=== PATIENT | male | born 1960 | race Caucasian/White ===

== ENCOUNTER → 2018-12-24 07:01 | Outpatient (CLI) | payer MEDICARE, MEDICAID, SELFPAY ==
[2018-12-24 08:09] LABS: Add Manual Diff / Slide Review NO; Appearance Urine UA CLEAR; Basophils Absolute Auto 0 /uL (0-100); Basophils Percent Auto 0.4 % (0-2); Bilirubin Urine UA NEGATIVE (NEGATIVE); Color Urine UA YELLOW; Eosinophils Absolute Auto 200 /uL (0-450); Eosinophils Percent Auto 3.3 % (2-4); Glucose Urine UA NEGATIVE (Negative); Hematocrit 42.4 % (41-53); Hemoglobin 14.1 g/dL (13.5-17.5); Ketones Urine UA NEGATIVE (NEGATIVE); Leukocyte Esterase Urine UA NEGATIVE (NEGATIVE); Lymphocytes Absolute Auto 3600 /uL (1100-4500); Lymphocytes Percent Auto 51.4 % (25-40); Mean Corpuscular HGB Conc 33.2 % (30-36); Mean Corpuscular Hemoglobin 32.1 PG (26-34); Mean Corpuscular Volume 96.8 fL (80-100); Monocytes Absolute Auto 700 /uL (0-900); Monocytes Percent Auto 10.6 % (3-14); Neutrophils Absolute Auto 2400 /uL (1500-7000); Neutrophils Percent Auto 34.3 % (50-75); Nitrite Urine UA NEGATIVE (Negative); Occult Blood Urine UA NEGATIVE (Negative); Platelet Count 269 X10^3/uL (150-400); Protein Urine UA NEGATIVE (Negative); Red Blood Cell Count 4.38 X10^6/uL (4.5-5.9); Red Cell Distribution Width 13.3 % (11.6-14.8); Specific Gravity Urine UA 1.015 (1.000-1.035); Urobilinogen Urine UA 0.2 E.U./dL (0.2); pH Urine UA 6.5 (4.5-8.0)
[2018-12-24 08:31] LABS: Alanine Aminotransferase 17 IU/L (21-72); Albumin 4.4 g/dL (3.5-5.0); Albumin Globulin Ratio 1.3 (1.0-2.8); Alkaline Phosphatase 49 U/L (38-126); Aspartate Aminotransferase 28 IU/L (17-59); Bilirubin Total 0.6 mg/dL (0.2-1.3); Blood Urea Nitrogen 8 mg/dL (9-20); Calcium 8.6 mg/dL (8.4-10.2); Carbon Dioxide 26 mmol/L (22-32); Chloride 103 mmol/L (98-107); Cholesterol 210 mg/dL (140-199); Estimated Glomerular Filt Rate > 60.0 mL/min (>60); Globulin 3.3 g/dL (1.7-4.1); Glucose 85 mg/dL (80-110); HDL Cholesterol 59 mg/dL (40-60); HEMOLYSIS < 15 (0-50); LDL Cholesterol Calculated 136 mg/dL (<100); Potassium 4.2 mmol/L (3.4-5.1); Sodium 141 mmol/L (137-145); Total Protein 7.7 g/dL (6.3-8.2); Triglycerides 74 mg/dL (35-150)
[2018-12-24 08:45] LABS: Thyroid Stimulating Hormone 3.96 uIU/mL (0.47-4.68)
[2018-12-24 09:00] LABS: Prostate Specific Antigen Scrn 0.317 ng/mL (0.1-4.0)
== END ==
PROVIDERS: PCP Family Medicine; Visit Provider Family Medicine
DX: E78.5 Hyperlipidemia, unspecified (principal); F10.21 Alcohol dependence, in remission; Z79.01 Long term (current) use of anticoagulants; Z86.73 Personal history of transient ischemic attack (TIA), and cerebral infarction without residual deficits
CPT/HCPCS: 36415; 80053; 80061; 81003; 84153; 84443; 85025; G0103

== ENCOUNTER → 2019-07-13 10:37 | Outpatient (CLI) | payer MEDICARE, MEDICAID, SELFPAY ==
--- NOTE | 2019-07-13 | DI.RAD.S_ITS ---
PROCEDURE: XR THORACIC SPINE 3V INDICATIONS: THORACIC AND LUMBAR BACK PAIN TECHNIQUE: 3 views of the thoracic spine were acquired. COMPARISON: None. FINDINGS: Bones: No fractures or dislocations. No suspicious bony lesions. There is [id number] degenerative disease at T5-T6, T6-T7, C7-T8, T8-T9, T9-T10, T10-T11, T11-T12 and T12-L1. Degenerative disc disease is also present in the cervical spine, moderate to severe C5-C6 and mild to moderate at other levels. 12 pairs of ribs are noted, and appear intact where visualized. Soft tissues: No paravertebral stripe thickening. IMPRESSION: Mild to moderate degenerative disc disease in thoracic spine. Dictated by: Francis Clifton M.D. on 07/13/2019 at 16:20 Approved by: Francis Clifton M.D. on 07/13/2019 at 16:28
== END ==
PROVIDERS: PCP Family Medicine; Visit Provider Family Medicine
DX: M54.5 Low back pain (principal); M51.34 Other intervertebral disc degeneration, thoracic region
CPT/HCPCS: 72072

== ENCOUNTER → 2019-07-24 11:52 | Outpatient (CLI) | payer MEDICARE, MEDICAID, SELFPAY ==
--- NOTE | 2019-07-24 11:56 | DI.MRI.S_ITS ---
PROCEDURE: MR LUMBAR SPINE WO CON INDICATIONS: Lumbar Radiculopathy TECHNIQUE: Noncontrast sagittal T1 spin echo and T2 fast echo, sagittal STIR, axial T1 and T2 fast spin echo through the lumbar spine. In cases with scoliosis, additional coronal T2 fast spin echo may be performed. COMPARISON: None. FINDINGS: Image quality: Excellent. Alignment and Curvature: There is normal bony alignment. Bone Marrow: Reactive endplate change is noted adjacent to the L3-L4, L4-L5 and L5-S1 discs. No acute vertebral body compression fractures. Spinal Cord: Conus medullaris terminates at the L1 level. Visualized cord demonstrates normal signal and size. Paraspinous Soft Tissues: No paravertebral masses. L1-L2: Normal appearance. L2-L3: Loss of disc signal. Mild, diffuse disc bulge. Mild bilateral facet hypertrophy. Mild narrowing of the central canal. Mild bilateral neural foraminal narrowing. No neural compression. L3-L4: Loss of disc signal and height. Mild bilateral facet hypertrophy. No central stenosis. Mild bilateral neural foraminal narrowing. No neural compression. L4-L5: Loss of disc signal and height. Mild, diffuse disc bulge. Mild bilateral facet hypertrophy. Mild narrowing of the central canal. Moderate bilateral neural foraminal narrowing. No neural compression. L5-S1: Loss of disc signal and height. Mild, diffuse disc bulge. Mild bilateral facet hypertrophy. No central stenosis. Severe bilateral neural foraminal narrowing with compression of the exiting L5 nerve roots. IMPRESSION: 1. Multilevel degenerative disc disease. 2. Multilevel facet arthropathy. 3. Mild L2-L3 and L4-L5 central canal narrowing. 4. Severe bilateral L5-S1 neural foraminal narrowing. Moderate bilateral L4-L5 neural foraminal narrowing. Mild bilateral L2-L3 and L3-L4 neural foraminal narrowing. 5. Compression of the exiting bilateral L5 nerve roots secondary to neural foraminal narrowing. Dictated by: Lynda Walsh MD, PhD on 07/26/2019 at 11:55 Approved by: Lynda Walsh MD, PhD on 07/26/2019 at 11:59
== END ==
PROVIDERS: PCP Family Medicine; Visit Provider Family Medicine
DX: M51.16 Intervertebral disc disorders with radiculopathy, lumbar region (principal); M51.17 Intervertebral disc disorders with radiculopathy, lumbosacral region; M47.26 Other spondylosis with radiculopathy, lumbar region; M47.27 Other spondylosis with radiculopathy, lumbosacral region; M48.061 Spinal stenosis, lumbar region without neurogenic claudication; M48.07 Spinal stenosis, lumbosacral region
CPT/HCPCS: 72148

== ENCOUNTER → 2019-08-09 11:22 | Outpatient (CLI) | payer MEDICARE, MEDICAID, SELFPAY ==
[2019-08-09 12:06] LABS: Add Manual Diff / Slide Review NO; Basophils Absolute Auto 100 /uL (0-100); Basophils Percent Auto 1.5 % (0-2); Eosinophils Absolute Auto 100 /uL (0-450); Eosinophils Percent Auto 2.4 % (2-4); Hematocrit 39.6 % (41-53); Hemoglobin 13.6 g/dL (13.5-17.5); Lymphocytes Absolute Auto 2000 /uL (1100-4500); Lymphocytes Percent Auto 34.9 % (25-40); Mean Corpuscular HGB Conc 34.5 % (30-36); Mean Corpuscular Hemoglobin 32.3 PG (26-34); Mean Corpuscular Volume 93.8 fL (80-100); Monocytes Absolute Auto 600 /uL (0-900); Monocytes Percent Auto 10.1 % (3-14); Neutrophils Absolute Auto 3000 /uL (1500-7000); Neutrophils Percent Auto 51.1 % (50-75); Platelet Count 247 X10^3/uL (150-400); Red Blood Cell Count 4.22 X10^6/uL (4.5-5.9); Red Cell Distribution Width 13.1 % (11.6-14.8); White Blood Cell Count 5.8 X10^3/uL (4.5-11.0)
[2019-08-09 12:17] LABS: Alanine Aminotransferase 16 IU/L (<50); Albumin 4.2 g/dL (3.5-5.0); Albumin Globulin Ratio 1.3 (1.0-2.8); Alkaline Phosphatase 51 U/L (38-126); Aspartate Aminotransferase 22 IU/L (17-59); Bilirubin Total 0.5 mg/dL (0.2-1.3); Blood Urea Nitrogen 7 mg/dL (9-20); Calcium 8.9 mg/dL (8.4-10.2); Carbon Dioxide 29 mmol/L (22-32); Chloride 101 mmol/L (98-107); Cholesterol 192 mg/dL (140-199); Estimated Glomerular Filt Rate > 60.0 mL/min (>60); Globulin 3.3 g/dL (1.7-4.1); Glucose 106 mg/dL (80-110); HDL Cholesterol 48 mg/dL (40-60); HEMOLYSIS < 15 (0-50); LDL Cholesterol Calculated 129 mg/dL (<100); Potassium 4.1 mmol/L (3.4-5.1); Sodium 139 mmol/L (137-145); Total Protein 7.5 g/dL (6.3-8.2); Triglycerides 74 mg/dL (35-150)
[2019-08-09 12:43] LABS: Prostate Specific Antigen 0.118 ng/mL (0.10-4.00)
== END ==
PROVIDERS: PCP Family Medicine; Referring Provider Family Medicine; Visit Provider Family Medicine
DX: E78.5 Hyperlipidemia, unspecified (principal); I26.99 Other pulmonary embolism without acute cor pulmonale; Z79.01 Long term (current) use of anticoagulants; Z86.73 Personal history of transient ischemic attack (TIA), and cerebral infarction without residual deficits; Z12.5 Encounter for screening for malignant neoplasm of prostate
CPT/HCPCS: 36415; 80053; 80061; 84153; 85025

== ENCOUNTER 2020-02-07 11:15 | Outpatient (RCR) | payer MEDICARE, MEDICAID, SELFPAY ==
--- NOTE | 2019-12-22 19:05 | PT.OIE ---
Current Diagnoses Spinal stenosis, lumbosacral region (12/22/19) Difficulty in walking, not elsewhere classified (12/22/19) Abnormal posture (12/22/19) Weakness (12/22/19) Past Medical History (Last Updated 07/28/19 @ 13:20 by Gal Bland DO) Anxiety (Chronic 1997) Arthritis (Chronic Unknown) Broca's aphasia (Chronic ~1997) Chronic back pain (Chronic 2000) COPD (chronic obstructive pulmonary disease) (Chronic 1994) DVT (deep venous thrombosis) (Resolved ~2003) Foraminal stenosis of lumbar region (Acute) Foraminal stenosis of lumbosacral region (Acute) Generalized headaches (Chronic 1969) Gout (Chronic Unknown) History of cellulitis (Resolved 2016) Hx of hepatitis C (Resolved ~2010) Measles (Resolved 1964) Migraines (Chronic 1969) PTSD (post-traumatic stress disorder) (Chronic 1982) Pulmonary embolism (Resolved ~2003) Restless leg syndrome (Chronic Unknown) Stroke (Chronic 1997) Substance abuse (Chronic 1971) Vertigo (Chronic 1997) Past Surgical History (Last Reviewed 12/23/17 @ 14:50 by Ebony Rose DO) History of carpal tunnel repair History of splenectomy Visit Care Team Role Provider Type Gal Bland DO Attending Provider Physician Primary Care Provider Referring Provider Specialty: [facility] Address: [address] [place] [address], [facility] Email: Physical Therapy Initial Evaluation PT-OP-A Visit Information Start: 12/22/19 08:09 Freq: Status: Active Protocol: Document 12/22/19 13:02 [facility] (Rec: 12/22/19 13:52 [facility] [id number]) Out-Patient Physical Therapy Visit Information Visit Information Visit Type Initial Evaluation Visit Start Time 13:02 Visit Stop Time 13:45 Total Visit Minutes 43 Visit Number 1 Number of OLIVE PACKER Visits 0 PT-OP-B Current Condition Start: 12/22/19 08:09 Freq: Status: Active Protocol: Document 12/22/19 13:02 [facility] (Rec: 12/22/19 13:52 [facility] [id number]) Current Condition History of Current Condition Onset Date about 18 years ago Current Complaints LBP History of Current Condition Pt reports he has back pain and thinks he will need back surgery. He is going to neurosurgeon but the MD wanted him to see a PT prior to that . He did 2 years of PT right after having his stroke 20 years ago. Stroke affected his R side and he still has weakness. He cannot lay down flat because it hurts. Pt reprots he falls about 1-2x a year and cannot get himself up . He has a CG that helps at home 2x/week that helps with cooking and cleaning. Pt flopped onto bed while using drugs and had a stroke 20 years ago. He could not walk or talk for years. He still has trouble thinking. Pt has had a hinged AFO since the stroke. He may need another becuase it is starting to click and have problems. Pt reports from his knee down he has significant weakness from stroke and still has numbness in leg and R side of torso. Pt reports he cannot use RUE a lot d/t dec coordination. Pt is R handed. CVA in 1997 and back pain started development about 4 years after stroke and started as a little twinge. Pt reports legs are really weak d/t pain. He is limited in ability to walk and feels like 60-80 ft but gets weak after that. Even over the course of 2 min to brush teeth , he has to bend over. Pt sleeps in recliner d/t back pain. Pt reports back pain has gotten way worse over the past 3 months. Pt reports he has to use electric carts at store. He lives alone and is indep with dressing and bathing but cg sets up meals and does cleaning. Prior Treatments and Tests oxycodone for pain, tramadol in past Treatment Goals Patient/Caregiver Goals Improve ability to walk PT-OP-C Subjective Start: 12/22/19 08:09 Freq: Status: Active Protocol: Document 12/22/19 13:02 [facility] (Rec: 12/22/19 13:52 [facility] [id number]) Patient Questionnaires Oswestry Low Back Index Oswestry Score 33/50 Oswestry Impairment 60 to 79% Impaired (Score 60- 79) OP-PT Pain Assessment Location LB Pain Location Details LB Intensity 7 Scale Used Numeric (0 - 10) Description Aching,Stabbing,With Movement Description- Other pain at rest is 4-5/10 Frequency Constant Pain Duration at least 30 min after sitting to rest Radiating Location into post thigh mostly Pain Aggravating Factors Activity,Standing,Walking, Bending,Lifting Other Pain Aggravating Factors laying down, twisting Pain Alleviating Factors Medication,Sitting PT-OP-G Mobility & Gait Start: 12/22/19 08:09 Freq: Status: Active Protocol: Document 12/22/19 13:02 [facility] (Rec: 12/22/19 13:52 [facility] [id number]) OP Gait Assessment Comments Gait Comments Pt amb with excessive lat lean and dec clearance of RLE with dec stance time on RLE. Dec overall push off. Amb with AFO PT-OP-J Posture/Palpation/Skin Start: 12/22/19 08:09 Freq: Status: Active Protocol: Document 12/22/19 13:02 [facility] (Rec: 12/22/19 13:52 [facility] [id number]) Posture Evaluation Domingo Postural Classification System Lumbar Protective Mechanism Left AP 0 Lumbar Protective Mechanism Right AP 0 Lumbar Protective Mechanism Left PA 0 Lumbar Protective Mechanism Right PA 0 Comments Posture Comments fwd bent at hips, fwd head & shoulder & inc kyphosis PT-OP-K Range of Motion Start: 12/22/19 08:09 Freq: Status: Active Protocol: Document 12/22/19 13:02 [facility] (Rec: 12/22/19 13:52 [facility] [id number]) Lumbar Spine Range of Motion Lumbar Spine Active Degrees Flexion 28 Extension 6 Rotation Left 29 Rotation Right 31 Lateral Flexion Left 9 Lateral Flexion Right 16 PT-OP-L Special Tests Start: 12/22/19 08:09 Freq: Status: Active Protocol: Document 12/22/19 13:02 [facility] (Rec: 12/22/19 13:52 [facility] [id number]) Special Tests Lumbar Spine Special Tests Straight Leg Raise Test Results positive R Slump Test Results positive R PT-OP-M Strength Start: 12/22/19 08:09 Freq: Status: Active Protocol: Document 12/22/19 13:02 [facility] (Rec: 12/22/19 13:52 [facility] [id number]) Hip Strength Hip Manual Muscle Testing Right Flexion (L2) 2+ Poor+ Abduction 2+ Poor+ External Rotation 3 Fair Internal Rotation 1 Trace Left Flexion (L2) 3+ Fair+ Abduction 3+ Fair+ External Rotation 3+ Fair+ Internal Rotation 3+ Fair+ Knee Strength Knee Manual Muscle Testing Right Flexion (S2) 1 Trace Extension (L3) 3+ Fair+ Left Flexion (S2) 4+ Good+ Extension (L3) 4 Good Ankle/Foot Strength Ankle and Foot Manual Muscle Testing Right Dorsiflexion (L4) 1 Trace Left Dorsiflexion (L4) 4+ Good+ PT-OP-Q Treatments Start: 12/22/19 08:09 Freq: Status: Active Protocol: Document 12/22/19 13:02 [facility] (Rec: 12/22/19 13:52 [facility] [id number]) Therapeutic Exercises Supine Exercises hip abd Side right Reps/Minutes 2 Comments stopped d/t pain pelvic tilts Reps/Minutes 10 Sidelying Exercises clamshell Side right Reps/Minutes 10 hip abd Side left Reps/Minutes 10 PT-OP-T Assessment and Plan Start: 12/22/19 08:09 Freq: Status: Active Protocol: Document 12/22/19 13:02 [facility] (Rec: 12/22/19 13:52 [facility] [id number]) Physical Therapy Assessment Rehab Potential Rehabilitation Potential Good Evaluation Complexity Number of Personal Factors/Comorbidities 3 or More Number of Body Systems Impaired 4 or More Clinical Presentation at Evaluation Evolving Impairments Impairments Activity Tolerance,Balance, Functional Activities, Functional Mobility,Gait,Pain, Posture,ROM,Soft Tissue Mobility,Strength Goals strength Short Term Goal (STG) Pt will be indep with HEP. STG Duration 01/21/20 Prison Goal (LTG) Pt will score 2/5 on LPM to show improved core stability and inc LE strength by 1 grade for all movements in order to improve his ability to do ADLs. LTG Duration 02/21/20 pain Prison Goal (LTG) Pt will report worst pain to be 5/10 in order to allow inc ability to participate in activties. LTG Duration 02/21/20 mobility Short Term Goal (STG) Pt will be able to participate in 2 min walk test. STG Duration 01/21/20 Prison Goal (LTG) Pt will be able to walk 500ft without a rest break with only minor increase in pain in order to navigate the community more. LTG Duration 02/21/20 Assessment Summary Assessment Pt presents with chronic back pain that is likely d/t movement dysfunctions with gait and activity d/t limited mobility of RUE & LE after stroke about 20 years ago. He is limited in his ability to participate in ADLs and ambulate any functional distances due to his pain. His prior CVA has limited him R sided mobility which significantly affects his gait . He would bneefit from skilled PT in order to dec pain and improve his overall mobility and ability to participate in typical daily activities. Physical Therapy Plan Frequency and Duration Frequency of Treatment 1-2x/week Duration of Treatment 2 months Plan of Care Start Date 12/22/19 Plan of Care End Date 02/21/20 Therapeutic Interventions Therapeutic Interventions Aquatic Therapy,Balance Training,Gait Training,Home Exercise Program,Manual Therapy,Neuromuscular Re- education,Patient/Caregiver Education,Self-Care/Home Management,Soft Tissue Mobilization,Taping, Therapeutic Activities, Therapeutic Exercises Modalities Cold Pack/Ice Massage,Electric Stimulation,Hot Packs, Ultrasound Next Visit Focus/Plan Next Note Type Treatment Note Next Visit Plan review HEP
--- NOTE | 2019-12-22 19:05 | PT.OPPOC ---
Physical, Occupational & Speech Therapy At [facility] Current Diagnoses Spinal stenosis, lumbosacral region (12/22/19) Difficulty in walking, not elsewhere classified (12/22/19) Abnormal posture (12/22/19) Weakness (12/22/19) Visit Care Team Role Provider Type Gal Bland DO Attending Provider Physician Primary Care Provider Referring Provider Specialty: [facility] Address: [address] [place] [address], [facility] Email: Plan Of Care PT-OP-T Assessment and Plan Start: 12/22/19 08:09 Freq: Status: Active Protocol: Document 12/22/19 13:02 [facility] (Rec: 12/22/19 13:52 [facility] [id number]) Physical Therapy Assessment Rehab Potential Rehabilitation Potential Good Evaluation Complexity Number of Personal Factors/Comorbidities 3 or More Number of Body Systems Impaired 4 or More Clinical Presentation at Evaluation Evolving Impairments Impairments Activity Tolerance,Balance, Functional Activities, Functional Mobility,Gait,Pain, Posture,ROM,Soft Tissue Mobility,Strength Goals strength Short Term Goal (STG) Pt will be indep with HEP. STG Duration 01/21/20 Weight Guesser Goal (LTG) Pt will score 2/5 on LPM to show improved core stability and inc LE strength by 1 grade for all movements in order to improve his ability to do ADLs. LTG Duration 02/21/20 pain Weight Guesser Goal (LTG) Pt will report worst pain to be 5/10 in order to allow inc ability to participate in activties. LTG Duration 02/21/20 mobility Short Term Goal (STG) Pt will be able to participate in 2 min walk test. STG Duration 01/21/20 Group Home Goal (LTG) Pt will be able to walk 500ft without a rest break with only minor increase in pain in order to navigate the community more. LTG Duration 02/21/20 Assessment Summary Assessment Pt presents with chronic back pain that is likely d/t movement dysfunctions with gait and activity d/t limited mobility of RUE & LE after stroke about 20 years ago. He is limited in his ability to participate in ADLs and ambulate any functional distances due to his pain. His prior CVA has limited him R sided mobility which significantly affects his gait . He would bneefit from skilled PT in order to dec pain and improve his overall mobility and ability to participate in typical daily activities. Physical Therapy Plan Frequency and Duration Frequency of Treatment 1-2x/week Duration of Treatment 2 months Plan of Care Start Date 12/22/19 Plan of Care End Date 02/21/20 Therapeutic Interventions Therapeutic Interventions Aquatic Therapy,Balance Training,Gait Training,Home Exercise Program,Manual Therapy,Neuromuscular Re- education,Patient/Caregiver Education,Self-Care/Home Management,Soft Tissue Mobilization,Taping, Therapeutic Activities, Therapeutic Exercises Modalities Cold Pack/Ice Massage,Electric Stimulation,Hot Packs, Ultrasound Next Visit Focus/Plan Next Note Type Treatment Note Next Visit Plan review HEP Plan of Care Dates Plan of Care Start Date 12/22/19 Plan of Care End Date 02/21/20 Electronically Signed by: hSanae Hickey, PT 12/22/19 4536 Please Sign and Return: I have reviewed this Plan of Care and certify that the skilled therapy services above are required to meet the patient?s needs. Physician Signature Date Printed Name and Credentials Clinical Instructor Signature Printed Name and Credentials
--- NOTE | 2020-01-10 12:23 | PT.OTN ---
Current Diagnoses Spinal stenosis, lumbosacral region (01/10/20) Difficulty in walking, not elsewhere classified (01/10/20) Abnormal posture (01/10/20) Weakness (01/10/20) Physical Therapy Treatment Note PT-OP-A Visit Information Start: 12/22/19 08:09 Freq: Status: Active Protocol: Document 01/10/20 11:21 [facility] (Rec: 01/10/20 12:22 [facility] [id number]) Out-Patient Physical Therapy Visit Information Visit Information Visit Type Treatment Note Visit Start Time 11:21 Visit Stop Time 12:00 Total Visit Minutes 39 Visit Number 2 Number of RAGS LABORER Visits 0 PT-OP-B Current Condition Start: 12/22/19 08:09 Freq: Status: Active Protocol: Document 12/22/19 13:02 [facility] (Rec: 12/22/19 13:52 [facility] [id number]) Current Condition History of Current Condition Onset Date about 18 years ago Current Complaints LBP History of Current Condition Pt reports he has back pain and thinks he will need back surgery. He is going to neurosurgeon but the MD wanted him to see a PT prior to that . He did 2 years of PT right after having his stroke 20 years ago. Stroke affected his R side and he still has weakness. He cannot lay down flat because it hurts. Pt reprots he falls about 1-2x a year and cannot get himself up . He has a CG that helps at home 2x/week that helps with cooking and cleaning. Pt flopped onto bed while using drugs and had a stroke 20 years ago. He could not walk or talk for years. He still has trouble thinking. Pt has had a hinged AFO since the stroke. He may need another becuase it is starting to click and have problems. Pt reports from his knee down he has significant weakness from stroke and still has numbness in leg and R side of torso. Pt reports he cannot use RUE a lot d/t dec coordination. Pt is R handed. CVA in 1997 and back pain started development about 4 years after stroke and started as a little twinge. Pt reports legs are really weak d/t pain. He is limited in ability to walk and feels like 60-80 ft but gets weak after that. Even over the course of 2 min to brush teeth , he has to bend over. Pt sleeps in recliner d/t back pain. Pt reports back pain has gotten way worse over the past 3 months. Pt reports he has to use electric carts at store. He lives alone and is indep with dressing and bathing but cg sets up meals and does cleaning. Prior Treatments and Tests oxycodone for pain, tramadol in past Treatment Goals Patient/Caregiver Goals Improve ability to walk PT-OP-C Subjective Start: 12/22/19 08:09 Freq: Status: Active Protocol: Document 01/10/20 11:21 [facility] (Rec: 01/10/20 12:22 [facility] [id number]) OP-PT Subjective Patient Comments Patient Comments Pt reprots compliance with exercises right after the appt but hasn't done them in past ocuple days. PT-OP-G Mobility & Gait Start: 12/22/19 08:09 Freq: Status: Active Protocol: Document 12/22/19 13:02 [facility] (Rec: 12/22/19 13:52 [facility] [id number]) OP Gait Assessment Comments Gait Comments Pt amb with excessive lat lean and dec clearance of RLE with dec stance time on RLE. Dec overall push off. Amb with AFO PT-OP-J Posture/Palpation/Skin Start: 12/22/19 08:09 Freq: Status: Active Protocol: Document 12/22/19 13:02 [facility] (Rec: 12/22/19 13:52 [facility] [id number]) Posture Evaluation Domingo Postural Classification System Lumbar Protective Mechanism Left AP 0 Lumbar Protective Mechanism Right AP 0 Lumbar Protective Mechanism Left PA 0 Lumbar Protective Mechanism Right PA 0 Comments Posture Comments fwd bent at hips, fwd head & shoulder & inc kyphosis PT-OP-K Range of Motion Start: 12/22/19 08:09 Freq: Status: Active Protocol: Document 12/22/19 13:02 [facility] (Rec: 12/22/19 13:52 [facility] [id number]) Lumbar Spine Range of Motion Lumbar Spine Active Degrees Flexion 28 Extension 6 Rotation Left 29 Rotation Right 31 Lateral Flexion Left 9 Lateral Flexion Right 16 PT-OP-L Special Tests Start: 12/22/19 08:09 Freq: Status: Active Protocol: Document 12/22/19 13:02 [facility] (Rec: 12/22/19 13:52 [facility] [id number]) Special Tests Lumbar Spine Special Tests Straight Leg Raise Test Results positive R Slump Test Results positive R PT-OP-M Strength Start: 12/22/19 08:09 Freq: Status: Active Protocol: Document 12/22/19 13:02 [facility] (Rec: 12/22/19 13:52 [facility] [id number]) Hip Strength Hip Manual Muscle Testing Right Flexion (L2) 2+ Poor+ Abduction 2+ Poor+ External Rotation 3 Fair Internal Rotation 1 Trace Left Flexion (L2) 3+ Fair+ Abduction 3+ Fair+ External Rotation 3+ Fair+ Internal Rotation 3+ Fair+ Knee Strength Knee Manual Muscle Testing Right Flexion (S2) 1 Trace Extension (L3) 3+ Fair+ Left Flexion (S2) 4+ Good+ Extension (L3) 4 Good Ankle/Foot Strength Ankle and Foot Manual Muscle Testing Right Dorsiflexion (L4) 1 Trace Left Dorsiflexion (L4) 4+ Good+ PT-OP-Q Treatments Start: 12/22/19 08:09 Freq: Status: Active Protocol: Document 01/10/20 11:21 [facility] (Rec: 01/10/20 12:22 [facility] [id number]) Therapeutic Exercises Supine Exercises ER Supine Exercise Name BKFO w/TA Side bilateral Reps/Minutes 10 hip flex Supine Exercise Name SLR w/TA Side bilateral Reps/Minutes 10 pelvic tilts Reps/Minutes 20 Comments manual cueing Sidelying Exercises clamshell Side bilateral Reps/Minutes 10 hip abd Side left Reps/Minutes 10 Sitting Exercises march Side bilateral Reps/Minutes 15 Comments focus on core Standing Exercises sit <>Stnad Reps/Minutes 10 Comments min UE use Manual Therapy Treatment Soft Tissue Mobilization ES & QL Body Location R>L Mobilization Type Rolling Intensity/Depth Moderate Body Position Prone Comments pt noted discomfort w/prone so try seated or S/L next time Self-Care/Home Management Treatment Education Patient Education Home Exercise Program,Pain Management Other Education use of ice/heat for pain, edu to stay in painfree range, edu to go slow with exercises, stop activities if painful PT-OP-T Assessment and Plan Start: 12/22/19 08:09 Freq: Status: Active Protocol: Document 01/10/20 11:21 [facility] (Rec: 01/10/20 12:22 [facility] [id number]) Physical Therapy Assessment Goals strength Short Term Goal (STG) Pt will be indep with HEP. STG Duration 01/21/20 Flat Folding Machine Operator Goal (LTG) Pt will score 2/5 on LPM to show improved core stability and inc LE strength by 1 grade for all movements in order to improve his ability to do ADLs. LTG Duration 02/21/20 pain Skilled Nursing Goal (LTG) Pt will report worst pain to be 5/10 in order to allow inc ability to participate in activties. LTG Duration 02/21/20 mobility Short Term Goal (STG) Pt will be able to participate in 2 min walk test. STG Duration 01/21/20 Skilled Nursing Goal (LTG) Pt will be able to walk 500ft without a rest break with only minor increase in pain in order to navigate the community more. LTG Duration 02/21/20 Assessment Summary Assessment Pt noted after exercises but not during re: pain and noted after finishing prone manual that prone was painful. Significant time spent today educating pt on staying in painfree range with activities and letting therapist know that positions of activities hurt. Prone was chosen for STM d/t pt chosing position. Pt educated that position can be changed as need Physical Therapy Plan Frequency and Duration Frequency of Treatment 1-2x/week Duration of Treatment 2 months Plan of Care Start Date 12/22/19 Plan of Care End Date 02/21/20 Next Visit Focus/Plan Next Note Type Treatment Note Next Visit Plan review HEP, STM in s/l or seated
--- NOTE | 2020-01-12 12:03 | PT.OTN ---
Current Diagnoses Spinal stenosis, lumbosacral region (01/12/20) Difficulty in walking, not elsewhere classified (01/12/20) Abnormal posture (01/12/20) Weakness (01/12/20) Physical Therapy Treatment Note PT-OP-A Visit Information Start: 12/22/19 08:09 Freq: Status: Active Protocol: Document 01/12/20 11:22 [facility] (Rec: 01/12/20 12:03 [facility] [id number]) Out-Patient Physical Therapy Visit Information Visit Information Visit Type Treatment Note Visit Start Time 11:19 Visit Stop Time 11:57 Total Visit Minutes 38 Visit Number 3 Number of MANAGER OF PATIENT Visits 0 PT-OP-B Current Condition Start: 12/22/19 08:09 Freq: Status: Active Protocol: Document 12/22/19 13:02 [facility] (Rec: 12/22/19 13:52 [facility] [id number]) Current Condition History of Current Condition Onset Date about 18 years ago Current Complaints LBP History of Current Condition Pt reports he has back pain and thinks he will need back surgery. He is going to neurosurgeon but the MD wanted him to see a PT prior to that . He did 2 years of PT right after having his stroke 20 years ago. Stroke affected his R side and he still has weakness. He cannot lay down flat because it hurts. Pt reprots he falls about 1-2x a year and cannot get himself up . He has a CG that helps at home 2x/week that helps with cooking and cleaning. Pt flopped onto bed while using drugs and had a stroke 20 years ago. He could not walk or talk for years. He still has trouble thinking. Pt has had a hinged AFO since the stroke. He may need another becuase it is starting to click and have problems. Pt reports from his knee down he has significant weakness from stroke and still has numbness in leg and R side of torso. Pt reports he cannot use RUE a lot d/t dec coordination. Pt is R handed. CVA in 1997 and back pain started development about 4 years after stroke and started as a little twinge. Pt reports legs are really weak d/t pain. He is limited in ability to walk and feels like 60-80 ft but gets weak after that. Even over the course of 2 min to brush teeth , he has to bend over. Pt sleeps in recliner d/t back pain. Pt reports back pain has gotten way worse over the past 3 months. Pt reports he has to use electric carts at store. He lives alone and is indep with dressing and bathing but cg sets up meals and does cleaning. Prior Treatments and Tests oxycodone for pain, tramadol in past Treatment Goals Patient/Caregiver Goals Improve ability to walk PT-OP-C Subjective Start: 12/22/19 08:09 Freq: Status: Active Protocol: Document 01/12/20 11:22 [facility] (Rec: 01/12/20 12:03 [facility] [id number]) OP-PT Subjective Patient Comments Patient Comments Pt reports his pain was not as bad as he thought it may be after last session. Pt reports yesterday his arms and legs started hurting and he had to grab the bar in the lobby to get back to his apartment d/t legs giving out. Pt reports up until 3 weeks ago he could use a shopping cart, now has to use an electic cart PT-OP-G Mobility & Gait Start: 12/22/19 08:09 Freq: Status: Active Protocol: Document 12/22/19 13:02 [facility] (Rec: 12/22/19 13:52 [facility] [id number]) OP Gait Assessment Comments Gait Comments Pt amb with excessive lat lean and dec clearance of RLE with dec stance time on RLE. Dec overall push off. Amb with AFO PT-OP-J Posture/Palpation/Skin Start: 12/22/19 08:09 Freq: Status: Active Protocol: Document 12/22/19 13:02 [facility] (Rec: 12/22/19 13:52 [facility] [id number]) Posture Evaluation [facility] Postural Classification System Lumbar Protective Mechanism Left AP 0 Lumbar Protective Mechanism Right AP 0 Lumbar Protective Mechanism Left PA 0 Lumbar Protective Mechanism Right PA 0 Comments Posture Comments fwd bent at hips, fwd head & shoulder & inc kyphosis PT-OP-K Range of Motion Start: 12/22/19 08:09 Freq: Status: Active Protocol: Document 12/22/19 13:02 [facility] (Rec: 12/22/19 13:52 [facility] [id number]) Lumbar Spine Range of Motion Lumbar Spine Active Degrees Flexion 28 Extension 6 Rotation Left 29 Rotation Right 31 Lateral Flexion Left 9 Lateral Flexion Right 16 PT-OP-L Special Tests Start: 12/22/19 08:09 Freq: Status: Active Protocol: Document 12/22/19 13:02 [facility] (Rec: 12/22/19 13:52 [facility] [id number]) Special Tests Lumbar Spine Special Tests Straight Leg Raise Test Results positive R Slump Test Results positive R PT-OP-M Strength Start: 12/22/19 08:09 Freq: Status: Active Protocol: Document 12/22/19 13:02 [facility] (Rec: 12/22/19 13:52 [facility] [id number]) Hip Strength Hip Manual Muscle Testing Right Flexion (L2) 2+ Poor+ Abduction 2+ Poor+ External Rotation 3 Fair Internal Rotation 1 Trace Left Flexion (L2) 3+ Fair+ Abduction 3+ Fair+ External Rotation 3+ Fair+ Internal Rotation 3+ Fair+ Knee Strength Knee Manual Muscle Testing Right Flexion (S2) 1 Trace Extension (L3) 3+ Fair+ Left Flexion (S2) 4+ Good+ Extension (L3) 4 Good Ankle/Foot Strength Ankle and Foot Manual Muscle Testing Right Dorsiflexion (L4) 1 Trace Left Dorsiflexion (L4) 4+ Good+ PT-OP-Q Treatments Start: 12/22/19 08:09 Freq: Status: Active Protocol: Document 01/12/20 11:22 [facility] (Rec: 01/12/20 12:03 [facility] [id number]) Cardio Equipment Recumbent Stepper (Sci-Fit) Duration (Minutes) 7 Resistance 2 Seat Position 12 Therapeutic Exercises Sitting Exercises ER Side bilateral Equipment Used L2 Reps/Minutes 15x2 march Side bilateral Reps/Minutes 2x10 Comments focus on core Standing Exercises hip abd Standing Exercise Name focus on core Side bilateral Reps/Minutes 10 sit <>Stnad Reps/Minutes 10 Comments min UE use as needed Manual Therapy Treatment Soft Tissue Mobilization ES & QL Body Location R>L Mobilization Type Rolling Intensity/Depth Moderate Body Position Sitting Comments bent over onto table PT-OP-T Assessment and Plan Start: 12/22/19 08:09 Freq: Status: Active Protocol: Document 01/12/20 11:22 [facility] (Rec: 01/12/20 12:03 [facility] [id number]) Physical Therapy Assessment Goals strength Short Term Goal (STG) Pt will be indep with HEP. STG Duration 01/21/20 Trans Router Goal (LTG) Pt will score 2/5 on LPM to show improved core stability and inc LE strength by 1 grade for all movements in order to improve his ability to do ADLs. LTG Duration 02/21/20 pain Group Home Goal (LTG) Pt will report worst pain to be 5/10 in order to allow inc ability to participate in activties. LTG Duration 02/21/20 mobility Short Term Goal (STG) Pt will be able to participate in 2 min walk test. STG Duration 01/21/20 Group Home Goal (LTG) Pt will be able to walk 500ft without a rest break with only minor increase in pain in order to navigate the community more. LTG Duration 02/21/20 Assessment Summary Assessment Pt felt relief after session today. He did not report inc pain with exercises done today and reports he has places he can participate in those at home. Adjusted HEP. Physical Therapy Plan Frequency and Duration Frequency of Treatment 1-2x/week Duration of Treatment 2 months Plan of Care Start Date 12/22/19 Plan of Care End Date 02/21/20 Next Visit Focus/Plan Next Note Type Treatment Note Next Visit Plan REview adjusted HEP, STM as tolerated
--- NOTE | 2020-01-17 11:59 | PT.OTN ---
Current Diagnoses Spinal stenosis, lumbosacral region (01/17/20) Difficulty in walking, not elsewhere classified (01/17/20) Abnormal posture (01/17/20) Weakness (01/17/20) Physical Therapy Treatment Note PT-OP-A Visit Information Start: 12/22/19 08:09 Freq: Status: Active Protocol: Document 01/17/20 11:19 [facility] (Rec: 01/17/20 11:38 [facility] [id number]) Out-Patient Physical Therapy Visit Information Visit Information Visit Type Treatment Note Visit Start Time 11:18 Visit Stop Time 11:58 Total Visit Minutes 40 Visit Number 3 Number of FINANCIAL FOUNDATIONS ASSOCIATE Visits 0 PT-OP-B Current Condition Start: 12/22/19 08:09 Freq: Status: Active Protocol: Document 12/22/19 13:02 [facility] (Rec: 12/22/19 13:52 [facility] [id number]) Current Condition History of Current Condition Onset Date about 18 years ago Current Complaints LBP History of Current Condition Pt reports he has back pain and thinks he will need back surgery. He is going to neurosurgeon but the MD wanted him to see a PT prior to that . He did 2 years of PT right after having his stroke 20 years ago. Stroke affected his R side and he still has weakness. He cannot lay down flat because it hurts. Pt reprots he falls about 1-2x a year and cannot get himself up . He has a CG that helps at home 2x/week that helps with cooking and cleaning. Pt flopped onto bed while using drugs and had a stroke 20 years ago. He could not walk or talk for years. He still has trouble thinking. Pt has had a hinged AFO since the stroke. He may need another becuase it is starting to click and have problems. Pt reports from his knee down he has significant weakness from stroke and still has numbness in leg and R side of torso. Pt reports he cannot use RUE a lot d/t dec coordination. Pt is R handed. CVA in 1997 and back pain started development about 4 years after stroke and started as a little twinge. Pt reports legs are really weak d/t pain. He is limited in ability to walk and feels like 60-80 ft but gets weak after that. Even over the course of 2 min to brush teeth , he has to bend over. Pt sleeps in recliner d/t back pain. Pt reports back pain has gotten way worse over the past 3 months. Pt reports he has to use electric carts at store. He lives alone and is indep with dressing and bathing but cg sets up meals and does cleaning. Prior Treatments and Tests oxycodone for pain, tramadol in past Treatment Goals Patient/Caregiver Goals Improve ability to walk PT-OP-C Subjective Start: 12/22/19 08:09 Freq: Status: Active Protocol: Document 01/17/20 11:19 [facility] (Rec: 01/17/20 11:38 [facility] [id number]) OP-PT Subjective Patient Comments Patient Comments Pt reports he felt pretty good after last session PT-OP-G Mobility & Gait Start: 12/22/19 08:09 Freq: Status: Active Protocol: Document 12/22/19 13:02 [facility] (Rec: 12/22/19 13:52 [facility] [id number]) OP Gait Assessment Comments Gait Comments Pt amb with excessive lat lean and dec clearance of RLE with dec stance time on RLE. Dec overall push off. Amb with AFO PT-OP-J Posture/Palpation/Skin Start: 12/22/19 08:09 Freq: Status: Active Protocol: Document 12/22/19 13:02 [facility] (Rec: 12/22/19 13:52 [facility] [id number]) Posture Evaluation [facility] Postural Classification System Lumbar Protective Mechanism Left AP 0 Lumbar Protective Mechanism Right AP 0 Lumbar Protective Mechanism Left PA 0 Lumbar Protective Mechanism Right PA 0 Comments Posture Comments fwd bent at hips, fwd head & shoulder & inc kyphosis PT-OP-K Range of Motion Start: 12/22/19 08:09 Freq: Status: Active Protocol: Document 12/22/19 13:02 [facility] (Rec: 12/22/19 13:52 [facility] [id number]) Lumbar Spine Range of Motion Lumbar Spine Active Degrees Flexion 28 Extension 6 Rotation Left 29 Rotation Right 31 Lateral Flexion Left 9 Lateral Flexion Right 16 PT-OP-L Special Tests Start: 12/22/19 08:09 Freq: Status: Active Protocol: Document 12/22/19 13:02 [facility] (Rec: 12/22/19 13:52 [facility] [id number]) Special Tests Lumbar Spine Special Tests Straight Leg Raise Test Results positive R Slump Test Results positive R PT-OP-M Strength Start: 12/22/19 08:09 Freq: Status: Active Protocol: Document 12/22/19 13:02 [facility] (Rec: 12/22/19 13:52 [facility] [id number]) Hip Strength Hip Manual Muscle Testing Right Flexion (L2) 2+ Poor+ Abduction 2+ Poor+ External Rotation 3 Fair Internal Rotation 1 Trace Left Flexion (L2) 3+ Fair+ Abduction 3+ Fair+ External Rotation 3+ Fair+ Internal Rotation 3+ Fair+ Knee Strength Knee Manual Muscle Testing Right Flexion (S2) 1 Trace Extension (L3) 3+ Fair+ Left Flexion (S2) 4+ Good+ Extension (L3) 4 Good Ankle/Foot Strength Ankle and Foot Manual Muscle Testing Right Dorsiflexion (L4) 1 Trace Left Dorsiflexion (L4) 4+ Good+ PT-OP-Q Treatments Start: 12/22/19 08:09 Freq: Status: Active Protocol: Document 01/17/20 11:19 [facility] (Rec: 01/17/20 11:38 [facility] [id number]) Cardio Equipment Recumbent Stepper (Sci-Fit) Duration (Minutes) 7 Resistance 4 Seat Position 11 Therapeutic Exercises Supine Exercises pelvic tilts Reps/Minutes 20 Comments manual cueing Sitting Exercises ER Side bilateral Equipment Used L2 Reps/Minutes 15x2 march Side bilateral Reps/Minutes 2x10 Comments focus on core Standing Exercises ext Standing Exercise Name focus on core Side bilateral Reps/Minutes 10 hip abd Standing Exercise Name focus on core Side bilateral Reps/Minutes 10 sit <>Stnad Reps/Minutes 10 Comments min UE use as needed Manual Therapy Treatment Soft Tissue Mobilization ES & QL Body Location R>L Mobilization Type Rolling Intensity/Depth Moderate Body Position Sitting Comments bent over onto table PT-OP-T Assessment and Plan Start: 12/22/19 08:09 Freq: Status: Active Protocol: Document 01/17/20 11:19 [facility] (Rec: 01/17/20 11:38 [facility] [id number]) Physical Therapy Assessment Goals strength Short Term Goal (STG) Pt will be indep with HEP. STG Duration 01/21/20 Usp Goal (LTG) Pt will score 2/5 on LPM to show improved core stability and inc LE strength by 1 grade for all movements in order to improve his ability to do ADLs. LTG Duration 02/21/20 pain Printing Machine Mechanic Goal (LTG) Pt will report worst pain to be 5/10 in order to allow inc ability to participate in activties. LTG Duration 02/21/20 mobility Short Term Goal (STG) Pt will be able to participate in 2 min walk test. STG Duration 01/21/20 Printing Machine Mechanic Goal (LTG) Pt will be able to walk 500ft without a rest break with only minor increase in pain in order to navigate the community more. LTG Duration 02/21/20 Assessment Summary Assessment Improved performance with exercises today. pt still required cueing for form though especially regarding posture. Physical Therapy Plan Frequency and Duration Frequency of Treatment 1-2x/week Duration of Treatment 2 months Plan of Care Start Date 12/22/19 Plan of Care End Date 02/21/20 Next Visit Focus/Plan Next Note Type Treatment Note Next Visit Plan REview adjusted HEP, STM as tolerated
--- NOTE | 2020-01-19 11:54 | PT.OTN ---
Current Diagnoses Spinal stenosis, lumbosacral region (01/19/20) Difficulty in walking, not elsewhere classified (01/19/20) Abnormal posture (01/19/20) Weakness (01/19/20) Physical Therapy Treatment Note PT-OP-A Visit Information Start: 12/22/19 08:09 Freq: Status: Active Protocol: Document 01/19/20 11:06 [facility] (Rec: 01/19/20 11:54 [facility] [id number]) Out-Patient Physical Therapy Visit Information Visit Information Visit Type Treatment Note Visit Start Time 11:05 Visit Stop Time 11:50 Total Visit Minutes 45 Visit Number 4 Number of INTERNATIONAL RELATIONS PROFESSOR Visits 0 PT-OP-B Current Condition Start: 12/22/19 08:09 Freq: Status: Active Protocol: Document 12/22/19 13:02 [facility] (Rec: 12/22/19 13:52 [facility] [id number]) Current Condition History of Current Condition Onset Date about 18 years ago Current Complaints LBP History of Current Condition Pt reports he has back pain and thinks he will need back surgery. He is going to neurosurgeon but the MD wanted him to see a PT prior to that . He did 2 years of PT right after having his stroke 20 years ago. Stroke affected his R side and he still has weakness. He cannot lay down flat because it hurts. Pt reprots he falls about 1-2x a year and cannot get himself up . He has a CG that helps at home 2x/week that helps with cooking and cleaning. Pt flopped onto bed while using drugs and had a stroke 20 years ago. He could not walk or talk for years. He still has trouble thinking. Pt has had a hinged AFO since the stroke. He may need another becuase it is starting to click and have problems. Pt reports from his knee down he has significant weakness from stroke and still has numbness in leg and R side of torso. Pt reports he cannot use RUE a lot d/t dec coordination. Pt is R handed. CVA in 1997 and back pain started development about 4 years after stroke and started as a little twinge. Pt reports legs are really weak d/t pain. He is limited in ability to walk and feels like 60-80 ft but gets weak after that. Even over the course of 2 min to brush teeth , he has to bend over. Pt sleeps in recliner d/t back pain. Pt reports back pain has gotten way worse over the past 3 months. Pt reports he has to use electric carts at store. He lives alone and is indep with dressing and bathing but cg sets up meals and does cleaning. Prior Treatments and Tests oxycodone for pain, tramadol in past Treatment Goals Patient/Caregiver Goals Improve ability to walk PT-OP-C Subjective Start: 12/22/19 08:09 Freq: Status: Active Protocol: Document 01/19/20 11:06 [facility] (Rec: 01/19/20 11:54 [facility] [id number]) OP-PT Subjective Patient Comments Patient Comments Pt reprots doing a set of his exercises yesterday. Pt reports back felt pretty good when he first woke up. After walking around the little bit he has done so far, it is a little more sore. PT-OP-G Mobility & Gait Start: 12/22/19 08:09 Freq: Status: Active Protocol: Document 12/22/19 13:02 [facility] (Rec: 12/22/19 13:52 [facility] [id number]) OP Gait Assessment Comments Gait Comments Pt amb with excessive lat lean and dec clearance of RLE with dec stance time on RLE. Dec overall push off. Amb with AFO PT-OP-J Posture/Palpation/Skin Start: 12/22/19 08:09 Freq: Status: Active Protocol: Document 12/22/19 13:02 [facility] (Rec: 12/22/19 13:52 [facility] [id number]) Posture Evaluation [facility] Postural Classification System Lumbar Protective Mechanism Left AP 0 Lumbar Protective Mechanism Right AP 0 Lumbar Protective Mechanism Left PA 0 Lumbar Protective Mechanism Right PA 0 Comments Posture Comments fwd bent at hips, fwd head & shoulder & inc kyphosis PT-OP-K Range of Motion Start: 12/22/19 08:09 Freq: Status: Active Protocol: Document 12/22/19 13:02 [facility] (Rec: 12/22/19 13:52 [facility] [id number]) Lumbar Spine Range of Motion Lumbar Spine Active Degrees Flexion 28 Extension 6 Rotation Left 29 Rotation Right 31 Lateral Flexion Left 9 Lateral Flexion Right 16 PT-OP-L Special Tests Start: 12/22/19 08:09 Freq: Status: Active Protocol: Document 12/22/19 13:02 [facility] (Rec: 12/22/19 13:52 [facility] [id number]) Special Tests Lumbar Spine Special Tests Straight Leg Raise Test Results positive R Slump Test Results positive R PT-OP-M Strength Start: 12/22/19 08:09 Freq: Status: Active Protocol: Document 12/22/19 13:02 [facility] (Rec: 12/22/19 13:52 [facility] [id number]) Hip Strength Hip Manual Muscle Testing Right Flexion (L2) 2+ Poor+ Abduction 2+ Poor+ External Rotation 3 Fair Internal Rotation 1 Trace Left Flexion (L2) 3+ Fair+ Abduction 3+ Fair+ External Rotation 3+ Fair+ Internal Rotation 3+ Fair+ Knee Strength Knee Manual Muscle Testing Right Flexion (S2) 1 Trace Extension (L3) 3+ Fair+ Left Flexion (S2) 4+ Good+ Extension (L3) 4 Good Ankle/Foot Strength Ankle and Foot Manual Muscle Testing Right Dorsiflexion (L4) 1 Trace Left Dorsiflexion (L4) 4+ Good+ PT-OP-Q Treatments Start: 12/22/19 08:09 Freq: Status: Active Protocol: Document 01/19/20 11:06 [facility] (Rec: 01/19/20 11:54 [facility] [id number]) Cardio Equipment Recumbent Stepper (Sci-Fit) Duration (Minutes) 8 Resistance 4-5 Seat Position 12 Therapeutic Exercises Supine Exercises LTR Side bilateral Reps/Minutes 10 Comments focus on core bridge Side bilateral Reps/Minutes 15 Comments w/manual traction through LEs pelvic tilts Reps/Minutes 10 x5 sec Comments focus on breathing during hold Sitting Exercises ER Side bilateral Equipment Used L2 Reps/Minutes 15x2 march Side bilateral Reps/Minutes 2x10 Comments focus on core Standing Exercises hip hikes Side bilateral Equipment Used 4 in step w/ rail Reps/Minutes 10 ext Standing Exercise Name focus on core Side bilateral Reps/Minutes 15 hip abd Standing Exercise Name focus on core Side bilateral Reps/Minutes 15 sit <>Stnad Reps/Minutes 10 Comments min UE use as needed Manual Therapy Treatment Soft Tissue Mobilization ES & QL Body Location R>L Mobilization Type Rolling Intensity/Depth Moderate Body Position Sitting Comments bent over onto table PT-OP-T Assessment and Plan Start: 12/22/19 08:09 Freq: Status: Active Protocol: Document 01/19/20 11:06 [facility] (Rec: 01/19/20 11:54 [facility] [id number]) Physical Therapy Assessment Goals strength Short Term Goal (STG) Pt will be indep with HEP. STG Duration 01/21/20 Fdc Goal (LTG) Pt will score 2/5 on LPM to show improved core stability and inc LE strength by 1 grade for all movements in order to improve his ability to do ADLs. LTG Duration 02/21/20 pain Fdc Goal (LTG) Pt will report worst pain to be 5/10 in order to allow inc ability to participate in activties. LTG Duration 02/21/20 mobility Short Term Goal (STG) Pt will be able to participate in 2 min walk test. STG Duration 01/21/20 Fdc Goal (LTG) Pt will be able to walk 500ft without a rest break with only minor increase in pain in order to navigate the community more. LTG Duration 02/21/20 Assessment Summary Assessment Very min cueing required w/ exercises today. Pt showed improved independece. Hip hike was very difficult both sides which likely contributes ot back pain duirng his gait pattern. Physical Therapy Plan Frequency and Duration Frequency of Treatment 1-2x/week Duration of Treatment 2 months Plan of Care Start Date 12/22/19 Plan of Care End Date 02/21/20 Next Visit Focus/Plan Next Note Type Treatment Note Next Visit Plan Try balance board, seated tball exercises, and STM to help w/dec of pain.
--- NOTE | 2020-01-25 12:02 | PT.OTN ---
Current Diagnoses Spinal stenosis, lumbosacral region (01/25/20) Difficulty in walking, not elsewhere classified (01/25/20) Abnormal posture (01/25/20) Weakness (01/25/20) Physical Therapy Treatment Note PT-OP-A Visit Information Start: 12/22/19 08:09 Freq: Status: Active Protocol: Document 01/25/20 11:15 DCW (Rec: 01/25/20 12:02 DCW [id number]) Out-Patient Physical Therapy Visit Information Visit Information Visit Type Treatment Note Visit Start Time 11:15 Visit Stop Time 12:00 Total Visit Minutes 45 Visit Number 5 Number of REGISTER OF DEEDS Visits 0 PT-OP-B Current Condition Start: 12/22/19 08:09 Freq: Status: Active Protocol: Document 12/22/19 13:02 [facility] (Rec: 12/22/19 13:52 [facility] [id number]) Current Condition History of Current Condition Onset Date about 18 years ago Current Complaints LBP History of Current Condition Pt reports he has back pain and thinks he will need back surgery. He is going to neurosurgeon but the MD wanted him to see a PT prior to that . He did 2 years of PT right after having his stroke 20 years ago. Stroke affected his R side and he still has weakness. He cannot lay down flat because it hurts. Pt reprots he falls about 1-2x a year and cannot get himself up . He has a CG that helps at home 2x/week that helps with cooking and cleaning. Pt flopped onto bed while using drugs and had a stroke 20 years ago. He could not walk or talk for years. He still has trouble thinking. Pt has had a hinged AFO since the stroke. He may need another becuase it is starting to click and have problems. Pt reports from his knee down he has significant weakness from stroke and still has numbness in leg and R side of torso. Pt reports he cannot use RUE a lot d/t dec coordination. Pt is R handed. CVA in 1997 and back pain started development about 4 years after stroke and started as a little twinge. Pt reports legs are really weak d/t pain. He is limited in ability to walk and feels like 60-80 ft but gets weak after that. Even over the course of 2 min to brush teeth , he has to bend over. Pt sleeps in recliner d/t back pain. Pt reports back pain has gotten way worse over the past 3 months. Pt reports he has to use electric carts at store. He lives alone and is indep with dressing and bathing but cg sets up meals and does cleaning. Prior Treatments and Tests oxycodone for pain, tramadol in past Treatment Goals Patient/Caregiver Goals Improve ability to walk PT-OP-C Subjective Start: 12/22/19 08:09 Freq: Status: Active Protocol: Document 01/25/20 11:15 DCW (Rec: 01/25/20 12:02 DCW [id number]) OP-PT Subjective Patient Comments Patient Comments Pt reports he was very fatigued after his last session, I could barely make it out to my car. PT-OP-G Mobility & Gait Start: 12/22/19 08:09 Freq: Status: Active Protocol: Document 12/22/19 13:02 [facility] (Rec: 12/22/19 13:52 [facility] [id number]) OP Gait Assessment Comments Gait Comments Pt amb with excessive lat lean and dec clearance of RLE with dec stance time on RLE. Dec overall push off. Amb with AFO PT-OP-J Posture/Palpation/Skin Start: 12/22/19 08:09 Freq: Status: Active Protocol: Document 12/22/19 13:02 [facility] (Rec: 12/22/19 13:52 [facility] [id number]) Posture Evaluation Domingo Postural Classification System Lumbar Protective Mechanism Left AP 0 Lumbar Protective Mechanism Right AP 0 Lumbar Protective Mechanism Left PA 0 Lumbar Protective Mechanism Right PA 0 Comments Posture Comments fwd bent at hips, fwd head & shoulder & inc kyphosis PT-OP-K Range of Motion Start: 12/22/19 08:09 Freq: Status: Active Protocol: Document 12/22/19 13:02 [facility] (Rec: 12/22/19 13:52 [facility] [id number]) Lumbar Spine Range of Motion Lumbar Spine Active Degrees Flexion 28 Extension 6 Rotation Left 29 Rotation Right 31 Lateral Flexion Left 9 Lateral Flexion Right 16 PT-OP-L Special Tests Start: 12/22/19 08:09 Freq: Status: Active Protocol: Document 12/22/19 13:02 [facility] (Rec: 12/22/19 13:52 [facility] [id number]) Special Tests Lumbar Spine Special Tests Straight Leg Raise Test Results positive R Slump Test Results positive R PT-OP-M Strength Start: 12/22/19 08:09 Freq: Status: Active Protocol: Document 12/22/19 13:02 [facility] (Rec: 12/22/19 13:52 [facility] [id number]) Hip Strength Hip Manual Muscle Testing Right Flexion (L2) 2+ Poor+ Abduction 2+ Poor+ External Rotation 3 Fair Internal Rotation 1 Trace Left Flexion (L2) 3+ Fair+ Abduction 3+ Fair+ External Rotation 3+ Fair+ Internal Rotation 3+ Fair+ Knee Strength Knee Manual Muscle Testing Right Flexion (S2) 1 Trace Extension (L3) 3+ Fair+ Left Flexion (S2) 4+ Good+ Extension (L3) 4 Good Ankle/Foot Strength Ankle and Foot Manual Muscle Testing Right Dorsiflexion (L4) 1 Trace Left Dorsiflexion (L4) 4+ Good+ PT-OP-Q Treatments Start: 12/22/19 08:09 Freq: Status: Active Protocol: Document 01/25/20 11:15 DCW (Rec: 01/25/20 12:02 DCW [id number]) Cardio Equipment Recumbent Stepper (Sci-Fit) Duration (Minutes) 6 Resistance 4 Seat Position 12 Gym Equipment Therapeutic Ball seated trunk flexion Exercise Details Fwd/L/R trunk flexion Ball Size/Color Green - 65 cm Body Position Sitting Reps/Duration x2 each direction Therapeutic Exercises Supine Exercises piriformis Supine Exercise Name piriformis stretch Side bilateral LTR Side bilateral Equipment Used 45 cm T-ball Reps/Minutes 10 Comments focus on core ER Supine Exercise Name BKFO w/TA Side bilateral Reps/Minutes 10 hip flex Supine Exercise Name SKtC Side bilateral pelvic tilts Reps/Minutes 10 x5 sec Comments focus on breathing during hold Standing Exercises hip hikes Side bilateral Equipment Used 4 in step w/ rail Reps/Minutes 10 Comments L stance only ext Standing Exercise Name focus on core Side bilateral Reps/Minutes 15 hip abd Standing Exercise Name focus on core Side bilateral Reps/Minutes 15 Manual Therapy Treatment Soft Tissue Mobilization ES & QL Body Location R>L Mobilization Type Rolling Intensity/Depth Moderate Body Position Sitting Comments bent over onto table PT-OP-T Assessment and Plan Start: 12/22/19 08:09 Freq: Status: Active Protocol: Document 01/25/20 11:15 DCW (Rec: 01/25/20 12:02 [facility] [id number]) Physical Therapy Assessment Goals strength Short Term Goal (STG) Pt will be indep with HEP. STG Duration 01/21/20 Coil Maker Goal (LTG) Pt will score 2/5 on LPM to show improved core stability and inc LE strength by 1 grade for all movements in order to improve his ability to do ADLs. LTG Duration 02/21/20 pain Mcc Goal (LTG) Pt will report worst pain to be 5/10 in order to allow inc ability to participate in activties. LTG Duration 02/21/20 mobility Short Term Goal (STG) Pt will be able to participate in 2 min walk test. STG Duration 01/21/20 Mcc Goal (LTG) Pt will be able to walk 500ft without a rest break with only minor increase in pain in order to navigate the community more. LTG Duration 02/21/20 Assessment Summary Assessment Pt tolerated treatment pretty well today, did not have any complaints of increased pain, required minimal cueing. Physical Therapy Plan Frequency and Duration Frequency of Treatment 1-2x/week Duration of Treatment 2 months Plan of Care Start Date 12/22/19 Plan of Care End Date 02/21/20 Next Visit Focus/Plan Next Note Type Treatment Note Next Visit Plan Try balance board, seated tball exercises, and STM to help w/dec of pain.
--- NOTE | 2020-01-31 12:13 | PT.OTN ---
Current Diagnoses Spinal stenosis, lumbosacral region (01/31/20) Difficulty in walking, not elsewhere classified (01/31/20) Abnormal posture (01/31/20) Weakness (01/31/20) Physical Therapy Treatment Note PT-OP-A Visit Information Start: 12/22/19 08:09 Freq: Status: Active Protocol: Document 01/31/20 11:23 [facility] (Rec: 01/31/20 12:13 [facility] [id number]) Out-Patient Physical Therapy Visit Information Visit Information Visit Type Treatment Note Visit Start Time 11:18 Visit Stop Time 11:56 Total Visit Minutes 38 Visit Number 6 Number of OPERATING ROOM MANAGER Visits 0 PT-OP-B Current Condition Start: 12/22/19 08:09 Freq: Status: Active Protocol: Document 12/22/19 13:02 [facility] (Rec: 12/22/19 13:52 [facility] [id number]) Current Condition History of Current Condition Onset Date about 18 years ago Current Complaints LBP History of Current Condition Pt reports he has back pain and thinks he will need back surgery. He is going to neurosurgeon but the MD wanted him to see a PT prior to that . He did 2 years of PT right after having his stroke 20 years ago. Stroke affected his R side and he still has weakness. He cannot lay down flat because it hurts. Pt reprots he falls about 1-2x a year and cannot get himself up . He has a CG that helps at home 2x/week that helps with cooking and cleaning. Pt flopped onto bed while using drugs and had a stroke 20 years ago. He could not walk or talk for years. He still has trouble thinking. Pt has had a hinged AFO since the stroke. He may need another becuase it is starting to click and have problems. Pt reports from his knee down he has significant weakness from stroke and still has numbness in leg and R side of torso. Pt reports he cannot use RUE a lot d/t dec coordination. Pt is R handed. CVA in 1997 and back pain started development about 4 years after stroke and started as a little twinge. Pt reports legs are really weak d/t pain. He is limited in ability to walk and feels like 60-80 ft but gets weak after that. Even over the course of 2 min to brush teeth , he has to bend over. Pt sleeps in recliner d/t back pain. Pt reports back pain has gotten way worse over the past 3 months. Pt reports he has to use electric carts at store. He lives alone and is indep with dressing and bathing but cg sets up meals and does cleaning. Prior Treatments and Tests oxycodone for pain, tramadol in past Treatment Goals Patient/Caregiver Goals Improve ability to walk PT-OP-C Subjective Start: 12/22/19 08:09 Freq: Status: Active Protocol: Document 01/31/20 11:23 [facility] (Rec: 01/31/20 12:13 [facility] [id number]) OP-PT Subjective Patient Comments Patient Comments Pt reports he did well after last session. Does not feel like he has had any major change in pain overall PT-OP-G Mobility & Gait Start: 12/22/19 08:09 Freq: Status: Active Protocol: Document 12/22/19 13:02 [facility] (Rec: 12/22/19 13:52 [facility] [id number]) OP Gait Assessment Comments Gait Comments Pt amb with excessive lat lean and dec clearance of RLE with dec stance time on RLE. Dec overall push off. Amb with AFO PT-OP-J Posture/Palpation/Skin Start: 12/22/19 08:09 Freq: Status: Active Protocol: Document 12/22/19 13:02 [facility] (Rec: 12/22/19 13:52 [facility] [id number]) Posture Evaluation Domigno Postural Classification System Lumbar Protective Mechanism Left AP 0 Lumbar Protective Mechanism Right AP 0 Lumbar Protective Mechanism Left PA 0 Lumbar Protective Mechanism Right PA 0 Comments Posture Comments fwd bent at hips, fwd head & shoulder & inc kyphosis PT-OP-K Range of Motion Start: 12/22/19 08:09 Freq: Status: Active Protocol: Document 12/22/19 13:02 [facility] (Rec: 12/22/19 13:52 [facility] [id number]) Lumbar Spine Range of Motion Lumbar Spine Active Degrees Flexion 28 Extension 6 Rotation Left 29 Rotation Right 31 Lateral Flexion Left 9 Lateral Flexion Right 16 PT-OP-L Special Tests Start: 12/22/19 08:09 Freq: Status: Active Protocol: Document 12/22/19 13:02 [facility] (Rec: 12/22/19 13:52 [facility] [id number]) Special Tests Lumbar Spine Special Tests Straight Leg Raise Test Results positive R Slump Test Results positive R PT-OP-M Strength Start: 12/22/19 08:09 Freq: Status: Active Protocol: Document 12/22/19 13:02 [facility] (Rec: 12/22/19 13:52 [facility] [id number]) Hip Strength Hip Manual Muscle Testing Right Flexion (L2) 2+ Poor+ Abduction 2+ Poor+ External Rotation 3 Fair Internal Rotation 1 Trace Left Flexion (L2) 3+ Fair+ Abduction 3+ Fair+ External Rotation 3+ Fair+ Internal Rotation 3+ Fair+ Knee Strength Knee Manual Muscle Testing Right Flexion (S2) 1 Trace Extension (L3) 3+ Fair+ Left Flexion (S2) 4+ Good+ Extension (L3) 4 Good Ankle/Foot Strength Ankle and Foot Manual Muscle Testing Right Dorsiflexion (L4) 1 Trace Left Dorsiflexion (L4) 4+ Good+ PT-OP-Q Treatments Start: 12/22/19 08:09 Freq: Status: Active Protocol: Document 01/31/20 11:23 [facility] (Rec: 01/31/20 12:13 [facility] [id number]) Cardio Equipment Recumbent Stepper (Sci-Fit) Duration (Minutes) 7 Resistance 4 Seat Position 12 Gym Equipment Shuttle Balance blue clips Details fwd: WBOS, NBOS & staggered stance B Therapeutic Ball seated Reps/Duration 8 ea B Comments 1. pelvic tilts 2. pelvic circles 3. figure 8s 4. marches 5. heel slides L Manual Therapy Treatment Soft Tissue Mobilization ES & QL Body Location R>L Mobilization Type Rolling Intensity/Depth Moderate Body Position Sitting Comments bent over onto table Joint Mobilizations hip Joint b Direction inf FM PT-OP-T Assessment and Plan Start: 12/22/19 08:09 Freq: Status: Active Protocol: Document 01/31/20 11:23 [facility] (Rec: 01/31/20 12:13 [facility] [id number]) Physical Therapy Assessment Goals strength Short Term Goal (STG) Pt will be indep with HEP. STG Duration 01/21/20 Detention Goal (LTG) Pt will score 2/5 on LPM to show improved core stability and inc LE strength by 1 grade for all movements in order to improve his ability to do ADLs. LTG Duration 02/21/20 pain Detention Goal (LTG) Pt will report worst pain to be 5/10 in order to allow inc ability to participate in activties. LTG Duration 02/21/20 mobility Short Term Goal (STG) Pt will be able to participate in 2 min walk test. STG Duration 01/21/20 Detention Goal (LTG) Pt will be able to walk 500ft without a rest break with only minor increase in pain in order to navigate the community more. LTG Duration 02/21/20 Assessment Summary Assessment Pt reported having no back pain after treatment but notes he is unsure if it will last. He did well on tball with good core activiation & LE stability with good challenge. Physical Therapy Plan Frequency and Duration Frequency of Treatment 1-2x/week Duration of Treatment 2 months Plan of Care Start Date 12/22/19 Plan of Care End Date 02/21/20 Next Visit Focus/Plan Next Note Type Treatment Note Next Visit Plan cont to work with hip and pelvis & lumbar mobs & STM, cont to work on core stability
--- NOTE | 2020-02-02 12:08 | PT.OTN ---
Current Diagnoses Spinal stenosis, lumbosacral region (02/02/20) Difficulty in walking, not elsewhere classified (02/02/20) Abnormal posture (02/02/20) Weakness (02/02/20) Physical Therapy Treatment Note PT-OP-A Visit Information Start: 12/22/19 08:09 Freq: Status: Active Protocol: Document 02/02/20 11:20 [facility] (Rec: 02/02/20 12:08 [facility] [id number]) Out-Patient Physical Therapy Visit Information Visit Information Visit Type Treatment Note Visit Start Time 11:17 Visit Stop Time 11:59 Total Visit Minutes 42 Visit Number 7 Number of SENIOR RESEARCH ASSOCIATE Visits 0 PT-OP-B Current Condition Start: 12/22/19 08:09 Freq: Status: Active Protocol: Document 12/22/19 13:02 [facility] (Rec: 12/22/19 13:52 [facility] [id number]) Current Condition History of Current Condition Onset Date about 18 years ago Current Complaints LBP History of Current Condition Pt reports he has back pain and thinks he will need back surgery. He is going to neurosurgeon but the MD wanted him to see a PT prior to that . He did 2 years of PT right after having his stroke 20 years ago. Stroke affected his R side and he still has weakness. He cannot lay down flat because it hurts. Pt reprots he falls about 1-2x a year and cannot get himself up . He has a CG that helps at home 2x/week that helps with cooking and cleaning. Pt flopped onto bed while using drugs and had a stroke 20 years ago. He could not walk or talk for years. He still has trouble thinking. Pt has had a hinged AFO since the stroke. He may need another becuase it is starting to click and have problems. Pt reports from his knee down he has significant weakness from stroke and still has numbness in leg and R side of torso. Pt reports he cannot use RUE a lot d/t dec coordination. Pt is R handed. CVA in 1997 and back pain started development about 4 years after stroke and started as a little twinge. Pt reports legs are really weak d/t pain. He is limited in ability to walk and feels like 60-80 ft but gets weak after that. Even over the course of 2 min to brush teeth , he has to bend over. Pt sleeps in recliner d/t back pain. Pt reports back pain has gotten way worse over the past 3 months. Pt reports he has to use electric carts at store. He lives alone and is indep with dressing and bathing but cg sets up meals and does cleaning. Prior Treatments and Tests oxycodone for pain, tramadol in past Treatment Goals Patient/Caregiver Goals Improve ability to walk PT-OP-C Subjective Start: 12/22/19 08:09 Freq: Status: Active Protocol: Document 02/02/20 11:20 [facility] (Rec: 02/02/20 12:08 [facility] [id number]) OP-PT Subjective Patient Comments Patient Comments Pt reports he has been working on engaging his core mm vs back mm and that does help him with pain. PT-OP-G Mobility & Gait Start: 12/22/19 08:09 Freq: Status: Active Protocol: Document 12/22/19 13:02 [facility] (Rec: 12/22/19 13:52 [facility] [id number]) OP Gait Assessment Comments Gait Comments Pt amb with excessive lat lean and dec clearance of RLE with dec stance time on RLE. Dec overall push off. Amb with AFO PT-OP-J Posture/Palpation/Skin Start: 12/22/19 08:09 Freq: Status: Active Protocol: Document 12/22/19 13:02 [facility] (Rec: 12/22/19 13:52 [facility] [id number]) Posture Evaluation Domingo Postural Classification System Lumbar Protective Mechanism Left AP 0 Lumbar Protective Mechanism Right AP 0 Lumbar Protective Mechanism Left PA 0 Lumbar Protective Mechanism Right PA 0 Comments Posture Comments fwd bent at hips, fwd head & shoulder & inc kyphosis PT-OP-K Range of Motion Start: 12/22/19 08:09 Freq: Status: Active Protocol: Document 12/22/19 13:02 [facility] (Rec: 12/22/19 13:52 [facility] [id number]) Lumbar Spine Range of Motion Lumbar Spine Active Degrees Flexion 28 Extension 6 Rotation Left 29 Rotation Right 31 Lateral Flexion Left 9 Lateral Flexion Right 16 PT-OP-L Special Tests Start: 12/22/19 08:09 Freq: Status: Active Protocol: Document 12/22/19 13:02 [facility] (Rec: 12/22/19 13:52 [facility] [id number]) Special Tests Lumbar Spine Special Tests Straight Leg Raise Test Results positive R Slump Test Results positive R PT-OP-M Strength Start: 12/22/19 08:09 Freq: Status: Active Protocol: Document 12/22/19 13:02 [facility] (Rec: 12/22/19 13:52 [facility] [id number]) Hip Strength Hip Manual Muscle Testing Right Flexion (L2) 2+ Poor+ Abduction 2+ Poor+ External Rotation 3 Fair Internal Rotation 1 Trace Left Flexion (L2) 3+ Fair+ Abduction 3+ Fair+ External Rotation 3+ Fair+ Internal Rotation 3+ Fair+ Knee Strength Knee Manual Muscle Testing Right Flexion (S2) 1 Trace Extension (L3) 3+ Fair+ Left Flexion (S2) 4+ Good+ Extension (L3) 4 Good Ankle/Foot Strength Ankle and Foot Manual Muscle Testing Right Dorsiflexion (L4) 1 Trace Left Dorsiflexion (L4) 4+ Good+ PT-OP-Q Treatments Start: 12/22/19 08:09 Freq: Status: Active Protocol: Document 02/02/20 11:20 [facility] (Rec: 02/02/20 12:08 [facility] [id number]) Cardio Equipment Recumbent Stepper (Sci-Fit) Duration (Minutes) 7 Resistance 4 Seat Position 12 Gym Equipment Shuttle Balance blue clips Details fwd: WBOS, NBOS & staggered stance B Reps/Duration w/head turns & EC Therapeutic Ball seated Reps/Duration 8 ea B Comments 1. pelvic tilts 2. pelvic circles 3. figure 8s 4. marches 5. heel slides L Therapeutic Exercises Standing Exercises hip hikes Side bilateral Equipment Used 4 in step w/ rail Reps/Minutes 10 Comments L stance only Manual Therapy Treatment Soft Tissue Mobilization ES & QL Body Location R>L Mobilization Type Rolling Intensity/Depth Moderate Body Position Sitting Comments bent over onto table Joint Mobilizations hip Joint b Direction inf FM PT-OP-T Assessment and Plan Start: 12/22/19 08:09 Freq: Status: Active Protocol: Document 02/02/20 11:20 [facility] (Rec: 02/02/20 12:08 [facility] [id number]) Physical Therapy Assessment Goals strength Short Term Goal (STG) Pt will be indep with HEP. STG Duration 01/21/20 Movie Shot Cameraman Goal (LTG) Pt will score 2/5 on LPM to show improved core stability and inc LE strength by 1 grade for all movements in order to improve his ability to do ADLs. LTG Duration 02/21/20 pain Movie Shot Cameraman Goal (LTG) Pt will report worst pain to be 5/10 in order to allow inc ability to participate in activties. LTG Duration 02/21/20 mobility Short Term Goal (STG) Pt will be able to participate in 2 min walk test. STG Duration 01/21/20 Usp Goal (LTG) Pt will be able to walk 500ft without a rest break with only minor increase in pain in order to navigate the community more. LTG Duration 02/21/20 Assessment Summary Assessment Pt reproted soreness with exercises today. Improved performance of hip hike but had difficulty with stance on RLE Physical Therapy Plan Frequency and Duration Frequency of Treatment 1-2x/week Duration of Treatment 2 months Plan of Care Start Date 12/22/19 Plan of Care End Date 02/21/20 Next Visit Focus/Plan Next Note Type Progress Note Next Visit Plan assess progress, cont to work with hip and pelvis & lumbar mobs & STM, cont to work on core stability
--- NOTE | 2020-02-07 12:21 | PT.OTN ---
Current Diagnoses Spinal stenosis, lumbosacral region (02/07/20) Difficulty in walking, not elsewhere classified (02/07/20) Abnormal posture (02/07/20) Weakness (02/07/20) Physical Therapy Treatment Note PT-OP-A Visit Information Start: 12/22/19 08:09 Freq: Status: Active Protocol: Document 02/07/20 11:27 [facility] (Rec: 02/07/20 12:21 [facility] [id number]) Out-Patient Physical Therapy Visit Information Visit Information Visit Type Progress Note Visit Start Time 11:21 Visit Stop Time 12:01 Total Visit Minutes 40 Visit Number 8 Number of APPROVER Visits 0 PT-OP-B Current Condition Start: 12/22/19 08:09 Freq: Status: Active Protocol: Document 12/22/19 13:02 [facility] (Rec: 12/22/19 13:52 [facility] [id number]) Current Condition History of Current Condition Onset Date about 18 years ago Current Complaints LBP History of Current Condition Pt reports he has back pain and thinks he will need back surgery. He is going to neurosurgeon but the MD wanted him to see a PT prior to that . He did 2 years of PT right after having his stroke 20 years ago. Stroke affected his R side and he still has weakness. He cannot lay down flat because it hurts. Pt reprots he falls about 1-2x a year and cannot get himself up . He has a CG that helps at home 2x/week that helps with cooking and cleaning. Pt flopped onto bed while using drugs and had a stroke 20 years ago. He could not walk or talk for years. He still has trouble thinking. Pt has had a hinged AFO since the stroke. He may need another becuase it is starting to click and have problems. Pt reports from his knee down he has significant weakness from stroke and still has numbness in leg and R side of torso. Pt reports he cannot use RUE a lot d/t dec coordination. Pt is R handed. CVA in 1997 and back pain started development about 4 years after stroke and started as a little twinge. Pt reports legs are really weak d/t pain. He is limited in ability to walk and feels like 60-80 ft but gets weak after that. Even over the course of 2 min to brush teeth , he has to bend over. Pt sleeps in recliner d/t back pain. Pt reports back pain has gotten way worse over the past 3 months. Pt reports he has to use electric carts at store. He lives alone and is indep with dressing and bathing but cg sets up meals and does cleaning. Prior Treatments and Tests oxycodone for pain, tramadol in past Treatment Goals Patient/Caregiver Goals Improve ability to walk PT-OP-C Subjective Start: 12/22/19 08:09 Freq: Status: Active Protocol: Document 02/07/20 11:27 [facility] (Rec: 02/07/20 12:21 [facility] [id number]) OP-PT Subjective Patient Comments Patient Comments Pt reports he does well an hr after PT. feels like standing is a little better since starting PT-OP-G Mobility & Gait Start: 12/22/19 08:09 Freq: Status: Active Protocol: Document 12/22/19 13:02 [facility] (Rec: 12/22/19 13:52 [facility] [id number]) OP Gait Assessment Comments Gait Comments Pt amb with excessive lat lean and dec clearance of RLE with dec stance time on RLE. Dec overall push off. Amb with AFO PT-OP-J Posture/Palpation/Skin Start: 12/22/19 08:09 Freq: Status: Active Protocol: Document 02/07/20 11:27 [facility] (Rec: 02/07/20 12:21 [facility] [id number]) Posture Evaluation [facility] Postural Classification System Lumbar Protective Mechanism Left AP 2 Lumbar Protective Mechanism Right AP 0 Lumbar Protective Mechanism Left PA 0 Lumbar Protective Mechanism Right PA 0 PT-OP-K Range of Motion Start: 12/22/19 08:09 Freq: Status: Active Protocol: Document 12/22/19 13:02 [facility] (Rec: 12/22/19 13:52 [facility] [id number]) Lumbar Spine Range of Motion Lumbar Spine Active Degrees Flexion 28 Extension 6 Rotation Left 29 Rotation Right 31 Lateral Flexion Left 9 Lateral Flexion Right 16 PT-OP-L Special Tests Start: 12/22/19 08:09 Freq: Status: Active Protocol: Document 12/22/19 13:02 [facility] (Rec: 12/22/19 13:52 [facility] [id number]) Special Tests Lumbar Spine Special Tests Straight Leg Raise Test Results positive R Slump Test Results positive R PT-OP-M Strength Start: 12/22/19 08:09 Freq: Status: Active Protocol: Document 02/07/20 11:27 [facility] (Rec: 02/07/20 12:21 [facility] [id number]) Hip Strength Hip Manual Muscle Testing Right Flexion (L2) 3- Fair- Abduction 3- Fair- External Rotation 3 Fair Internal Rotation 1 Trace Left Flexion (L2) 4- Good- Abduction 4- Good- External Rotation 4 Good Internal Rotation 4 Good PT-OP-Q Treatments Start: 12/22/19 08:09 Freq: Status: Active Protocol: Document 02/07/20 11:27 [facility] (Rec: 02/07/20 12:21 [facility] [id number]) Therapeutic Exercises Supine Exercises IR Side right Reps/Minutes 5 x5sec hold Manual Therapy Treatment Soft Tissue Mobilization ES & QL Body Location R>L Mobilization Type Rolling Intensity/Depth Moderate Body Position Sitting Comments bent over onto table Joint Mobilizations hip Joint R Direction on axis IR FM PT-OP-T Assessment and Plan Start: 12/22/19 08:09 Freq: Status: Active Protocol: Document 02/07/20 11:27 [facility] (Rec: 02/07/20 12:21 [facility] [id number]) Physical Therapy Assessment Goals strength Short Term Goal (STG) Pt will be indep with HEP. STG Duration achieved Prison Goal (LTG) Pt will score 2/5 on LPM to show improved core stability and inc LE strength by 1 grade for all movements in order to improve his ability to do ADLs. LTG Duration 02/21/20 pain Prison Goal (LTG) Pt will report worst pain to be 5/10 in order to allow inc ability to participate in activties. LTG Duration 02/21/20 mobility Short Term Goal (STG) Pt will be able to participate in 2 min walk test. -216ft able to do 362 ft in 3.5 min before sitting STG Duration achieved [employer] Goal (LTG) Pt will be able to walk 500ft without a rest break with only minor increase in pain in order to navigate the community more. able to do 362 ft in 3.5 min before sitting LTG Duration 02/21/20 Assessment Summary Assessment Pt has made progress with walking ability per testing, he was able to walk 362 ft prior to requiring a rest where he reproted at start the he walks about 80ft at max. He is improving some with strength but still has dec core stability and high levels of pain. P tencouraged to follow up with MD Physical Therapy Plan Frequency and Duration Frequency of Treatment 1-2x/week Duration of Treatment 2 months Plan of Care Start Date 12/22/19 Plan of Care End Date 02/21/20 Next Visit Focus/Plan Next Visit Plan Determine if pt wants to dc vs continue, review HEP
--- NOTE | 2020-03-14 17:57 | PT.OPDS ---
Current Diagnoses Spinal stenosis, lumbosacral region (02/07/20) Difficulty in walking, not elsewhere classified (02/07/20) Abnormal posture (02/07/20) Weakness (02/07/20) Visit Care Team Role Provider Type Gal Bland DO Attending Provider Physician Primary Care Provider Referring Provider Specialty: Family Practice Address: [address] [place] [address], [facility] Email: Visit Number Visit Number 8 Discharge Summary PT-OP-B Current Condition Start: 12/22/19 08:09 Freq: Status: Active Protocol: Document 12/22/19 13:02 [facility] (Rec: 12/22/19 13:52 [facility] [id number]) Current Condition History of Current Condition Onset Date about 18 years ago Current Complaints LBP History of Current Condition Pt reports he has back pain and thinks he will need back surgery. He is going to neurosurgeon but the MD wanted him to see a PT prior to that . He did 2 years of PT right after having his stroke 20 years ago. Stroke affected his R side and he still has weakness. He cannot lay down flat because it hurts. Pt reprots he falls about 1-2x a year and cannot get himself up . He has a CG that helps at home 2x/week that helps with cooking and cleaning. Pt flopped onto bed while using drugs and had a stroke 20 years ago. He could not walk or talk for years. He still has trouble thinking. Pt has had a hinged AFO since the stroke. He may need another becuase it is starting to click and have problems. Pt reports from his knee down he has significant weakness from stroke and still has numbness in leg and R side of torso. Pt reports he cannot use RUE a lot d/t dec coordination. Pt is R handed. CVA in 1997 and back pain started development about 4 years after stroke and started as a little twinge. Pt reports legs are really weak d/t pain. He is limited in ability to walk and feels like 60-80 ft but gets weak after that. Even over the course of 2 min to brush teeth , he has to bend over. Pt sleeps in recliner d/t back pain. Pt reports back pain has gotten way worse over the past 3 months. Pt reports he has to use electric carts at store. He lives alone and is indep with dressing and bathing but cg sets up meals and does cleaning. Prior Treatments and Tests oxycodone for pain, tramadol in past Treatment Goals Patient/Caregiver Goals Improve ability to walk PT-OP-C Subjective Start: 12/22/19 08:09 Freq: Status: Active Protocol: Document 02/07/20 11:27 [facility] (Rec: 02/07/20 12:21 [facility] [id number]) OP-PT Subjective Patient Comments Patient Comments Pt reports he does well an hr after PT. feels like standing is a little better since starting PT-OP-G Mobility & Gait Start: 12/22/19 08:09 Freq: Status: Active Protocol: Document 12/22/19 13:02 [facility] (Rec: 12/22/19 13:52 [facility] [id number]) OP Gait Assessment Comments Gait Comments Pt amb with excessive lat lean and dec clearance of RLE with dec stance time on RLE. Dec overall push off. Amb with AFO PT-OP-J Posture/Palpation/Skin Start: 12/22/19 08:09 Freq: Status: Active Protocol: Document 02/07/20 11:27 [facility] (Rec: 02/07/20 12:21 [facility] [id number]) Posture Evaluation [place] Postural Classification System Lumbar Protective Mechanism Left AP 2 Lumbar Protective Mechanism Right AP 0 Lumbar Protective Mechanism Left PA 0 Lumbar Protective Mechanism Right PA 0 PT-OP-K Range of Motion Start: 12/22/19 08:09 Freq: Status: Active Protocol: Document 12/22/19 13:02 [facility] (Rec: 12/22/19 13:52 [facility] [id number]) Lumbar Spine Range of Motion Lumbar Spine Active Degrees Flexion 28 Extension 6 Rotation Left 29 Rotation Right 31 Lateral Flexion Left 9 Lateral Flexion Right 16 PT-OP-L Special Tests Start: 12/22/19 08:09 Freq: Status: Active Protocol: Document 12/22/19 13:02 [facility] (Rec: 12/22/19 13:52 [facility] [id number]) Special Tests Lumbar Spine Special Tests Straight Leg Raise Test Results positive R Slump Test Results positive R PT-OP-M Strength Start: 12/22/19 08:09 Freq: Status: Active Protocol: Document 02/07/20 11:27 [facility] (Rec: 02/07/20 12:21 [facility] [id number]) Hip Strength Hip Manual Muscle Testing Right Flexion (L2) 3- Fair- Abduction 3- Fair- External Rotation 3 Fair Internal Rotation 1 Trace Left Flexion (L2) 4- Good- Abduction 4- Good- External Rotation 4 Good Internal Rotation 4 Good PT-OP-T Assessment and Plan Start: 12/22/19 08:09 Freq: Status: Active Protocol: Document 03/14/20 17:53 [facility] (Rec: 03/14/20 17:56 [facility] [id number]) Physical Therapy Assessment Assessment Summary Assessment Pt cancelled last appt d/t pain after progress report. Pt does not plan to return to PT at this time and plans to just follow up with MD. SARKAR at this time. Physical Therapy Plan Discharge Physical Therapy Discharge Reasons No Longer Attending PT
== END 2020-03-15 13:08 ==
LOC: PHYS 11:15
PROVIDERS: PCP Family Medicine; Referring Provider Family Medicine; Visit Provider Family Medicine
DX: M48.07 Spinal stenosis, lumbosacral region (principal); R53.1 Weakness; R26.2 Difficulty in walking, not elsewhere classified; R29.3 Abnormal posture
CPT/HCPCS: 97110; 97112; 97140; 97162; 97535

== ENCOUNTER → 2020-10-11 11:12 | Outpatient (CLI) | payer MEDICARE, MEDICAID, SELFPAY ==
[2020-10-11] MEDS: COVID-19 VACC #1, MRNA(MOD) 100 MCG/0.5 ML VIAL IM (11:31)
== END ==
PROVIDERS: PCP Family Medicine; Visit Provider Internal Medicine
DX: Z23 Encounter for immunization (principal)
CPT/HCPCS: 0011A; 91301

== ENCOUNTER → 2020-11-08 11:23 | Outpatient (CLI) | payer MEDICARE, MEDICAID, SELFPAY ==
[2020-11-08] MEDS: COVID-19 VACC #2, MRNA(MOD) 100 MCG/0.5 ML VIAL IM (11:33)
== END ==
PROVIDERS: PCP Family Medicine; Visit Provider Internal Medicine
DX: Z23 Encounter for immunization (principal)
CPT/HCPCS: 0012A; 91301

== ENCOUNTER → 2021-08-16 10:44 | Outpatient (CLI) | payer MEDICARE, MEDICAID, SELFPAY ==
[2021-08-16 11:06] LABS: Add Manual Diff / Slide Review NO; Basophils Absolute Auto 0 /uL (0-100); Basophils Percent Auto 0.7 % (0-2); Eosinophils Absolute Auto 100 /uL (0-450); Eosinophils Percent Auto 1.7 % (2-4); Hematocrit 39.2 % (41-53); Hemoglobin 13.2 g/dL (13.5-17.5); Lymphocytes Absolute Auto 3000 /uL (1100-4500); Mean Corpuscular HGB Conc 33.7 % (30-36); Mean Corpuscular Volume 94.9 fL (80-100); Monocytes Absolute Auto 600 /uL (0-900); Neutrophils Absolute Auto 3100 /uL (1500-7000); Neutrophils Percent Auto 45.6 % (50-75); Platelet Count 242 X10^3/uL (150-400); Red Blood Cell Count 4.13 X10^6/uL (4.5-5.9); Red Cell Distribution Width 12.7 % (11.6-14.8); White Blood Cell Count 6.9 X10^3/uL (4.5-11.0)
[2021-08-16 11:24] LABS: Alanine Aminotransferase 15 IU/L (<50); Albumin 4.1 g/dL (3.5-5.0); Albumin Globulin Ratio 1.3 (1.0-2.8); Alkaline Phosphatase 50 U/L (38-126); Aspartate Aminotransferase 25 IU/L (17-59); BUN Creatinine Ratio 9.2 (6-22); Bilirubin Total 0.6 mg/dL (0.2-1.3); Blood Urea Nitrogen 7 mg/dL (9-20); Calcium 8.4 mg/dL (8.4-10.2); Carbon Dioxide 30 mmol/L (22-32); Chloride 103 mmol/L (98-107); Cholesterol 191 mg/dL (140-199); Estimated Glomerular Filt Rate > 60.0 mL/min (>60); Globulin 3.1 g/dL (1.7-4.1); Glucose 100 mg/dL (80-110); HDL Cholesterol 63 mg/dL (40-60); HEMOLYSIS < 15 (0-50); LDL Cholesterol Calculated 112 mg/dL (<100); Potassium 4.4 mmol/L (3.4-5.1); Sodium 138 mmol/L (137-145); Total Protein 7.2 g/dL (6.3-8.2); Triglycerides 78 mg/dL (35-150)
[2021-08-16 11:49] LABS: Prostate Specific Antigen Scrn 0.099 ng/mL (0.1-4.0)
== END ==
PROVIDERS: PCP Family Medicine; Referring Provider Family Medicine; Visit Provider Family Medicine
DX: E78.5 Hyperlipidemia, unspecified (principal); Z12.5 Encounter for screening for malignant neoplasm of prostate; Z86.73 Personal history of transient ischemic attack (TIA), and cerebral infarction without residual deficits
CPT/HCPCS: 36415; 80053; 80061; 85025; G0103

== ENCOUNTER → 2023-03-19 08:24 | Outpatient (CLI) | payer MEDICARE, MEDICAID, SELFPAY ==
[2023-03-19 10:14] LABS: Add Manual Diff / Slide Review NO; Basophils Absolute Auto 100 /uL (0-100); Basophils Percent Auto 0.9 % (0-2); Eosinophils Absolute Auto 200 /uL (0-450); Eosinophils Percent Auto 3.6 % (2-4); Hematocrit 37.8 % (41-53); Hemoglobin 13.1 g/dL (13.5-17.5); Lymphocytes Absolute Auto 3300 /uL (1100-4500); Lymphocytes Percent Auto 47.8 % (25-40); Mean Corpuscular HGB Conc 34.5 % (30-36); Mean Corpuscular Hemoglobin 32.7 PG (26-34); Mean Corpuscular Volume 94.7 fL (80-100); Monocytes Absolute Auto 900 /uL (0-900); Monocytes Percent Auto 12.4 % (3-14); Neutrophils Absolute Auto 2400 /uL (1500-7000); Neutrophils Percent Auto 35.3 % (50-75); Platelet Count 252 X10^3/uL (150-400); Red Blood Cell Count 3.99 X10^6/uL (4.5-5.9); Red Cell Distribution Width 13.4 % (11.6-14.8); White Blood Cell Count 6.9 X10^3/uL (4.5-11.0)
[2023-03-19 10:59] LABS: Alanine Aminotransferase 21 IU/L (<50); Albumin 4.1 g/dL (3.5-5.0); Albumin Globulin Ratio 1.6 (1.0-2.8); Alkaline Phosphatase 57 U/L (38-126); Aspartate Aminotransferase 26 IU/L (17-59); BUN Creatinine Ratio 9.9 (6-22); Bilirubin Total 0.6 mg/dL (0.2-1.3); Blood Urea Nitrogen 7 mg/dL (9-20); Calcium 8.5 mg/dL (8.4-10.2); Carbon Dioxide 27 mmol/L (22-32); Chloride 99 mmol/L (98-107); Cholesterol 190 mg/dL (140-199); Estimated Glomerular Filt Rate > 60 mL/min (>60); Globulin 2.6 g/dL (1.7-4.1); Glucose 88 mg/dL (80-110); HDL Cholesterol 65 mg/dL (40-60); HEMOLYSIS < 15 (0-50); LDL Cholesterol Calculated 112 mg/dL (<100); Potassium 4.3 mmol/L (3.4-5.1); Sodium 136 mmol/L (137-145); Total Protein 6.7 g/dL (6.3-8.2); Triglycerides 66 mg/dL (35-150)
[2023-03-19 11:15] LABS: Prostate Specific Antigen Scrn 0.214 ng/mL (0.1-4.0)
== END ==
PROVIDERS: PCP Family Medicine; Referring Provider Physician Assistant; Visit Provider Physician Assistant
DX: E78.5 Hyperlipidemia, unspecified (principal); Z12.5 Encounter for screening for malignant neoplasm of prostate; Z86.73 Personal history of transient ischemic attack (TIA), and cerebral infarction without residual deficits
CPT/HCPCS: 36415; 80053; 80061; 85025; G0103

== ENCOUNTER → 2024-05-21 07:06 | Outpatient (CLI) | payer MEDICARE, MEDICAID, SELFPAY ==
[2024-05-21 08:01] LABS: Alanine Aminotransferase 21 IU/L (<50); Albumin 4.1 g/dL (3.5-5.0); Albumin Globulin Ratio 1.6 (1.0-2.8); Alkaline Phosphatase 56 U/L (38-126); Aspartate Aminotransferase 27 IU/L (17-59); BUN Creatinine Ratio 10.3 (6-22); Bilirubin Total 0.7 mg/dL (0.2-1.3); Blood Urea Nitrogen 8 mg/dL (9-20); Carbon Dioxide 27 mmol/L (22-32); Chloride 101 mmol/L (98-107); Cholesterol 192 mg/dL (140-199); Estimated Glomerular Filt Rate > 60 mL/min (>60); Globulin 2.6 g/dL (1.7-4.1); Glucose 94 mg/dL (80-110); HDL Cholesterol 79 mg/dL (40-60); HEMOLYSIS < 15 (0-50); LDL Cholesterol Calculated 102 mg/dL (<100); Potassium 4.2 mmol/L (3.4-5.1); Sodium 137 mmol/L (137-145); Total Protein 6.7 g/dL (6.3-8.2); Triglycerides 57 mg/dL (35-150)
[2024-05-21 08:11] LABS: Add Manual Diff / Slide Review NO; Basophils Absolute Auto 0 /uL (0-100); Basophils Percent Auto 0.6 % (0-2); Eosinophils Absolute Auto 300 /uL (0-450); Eosinophils Percent Auto 4.1 % (2-4); Hematocrit 39.5 % (41-53); Hemoglobin 13.4 g/dL (13.5-17.5); Lymphocytes Absolute Auto 3900 /uL (1100-4500); Lymphocytes Percent Auto 51.8 % (25-40); Mean Corpuscular Hemoglobin 32.6 PG (26-34); Mean Corpuscular Volume 95.8 fL (80-100); Monocytes Absolute Auto 800 /uL (0-900); Monocytes Percent Auto 10.8 % (3-14); Neutrophils Absolute Auto 2500 /uL (1500-7000); Neutrophils Percent Auto 32.7 % (50-75); Platelet Count 270 X10^3/uL (150-400); Red Blood Cell Count 4.12 X10^6/uL (4.5-5.9); Red Cell Distribution Width 13.5 % (11.6-14.8); White Blood Cell Count 7.6 X10^3/uL (4.5-11.0)
== END ==
PROVIDERS: PCP Family Medicine; Referring Provider Family Medicine; Visit Provider Family Medicine
DX: E78.5 Hyperlipidemia, unspecified (principal); Z12.5 Encounter for screening for malignant neoplasm of prostate; F11.90 Opioid use, unspecified, uncomplicated; K59.03 Drug induced constipation; T40.2X5A Adverse effect of other opioids, initial encounter
CPT/HCPCS: 36415; 80053; 80061; 85025; G0103

== ENCOUNTER → 2025-05-12 06:56 | Outpatient (CLI) | payer MEDICARE, MEDICAID, SELFPAY ==
[2025-05-12 07:55] LABS: Add Manual Diff / Slide Review NO; Hematocrit 42.7 % (41-53); Hemoglobin 14.6 g/dL (13.5-17.5); Lymphocytes Absolute Auto 2800 /uL (1100-4500); Mean Corpuscular HGB Conc 34.2 % (30-36); Mean Corpuscular Hemoglobin 32.2 PG (26-34); Mean Corpuscular Volume 94.2 fL (80-100); Platelet Count 319 X10^3/uL (150-400)
[2025-05-12 08:23] LABS: Alanine Aminotransferase 26 IU/L (<50); Albumin 4.2 g/dL (3.5-5.0); Albumin Globulin Ratio 1.5 (1.0-2.8); Alkaline Phosphatase 48 U/L (38-126); Blood Urea Nitrogen 12 mg/dL (9-20); Calcium 9.1 mg/dL (8.4-10.2); Carbon Dioxide 27 mmol/L (22-32); Chloride 100 mmol/L (98-107); Cholesterol 185 mg/dL (140-199); Estimated Glomerular Filt Rate > 60 mL/min (>60); Globulin 2.8 g/dL (1.7-4.1); Glucose 97 mg/dL (70-99); HDL Cholesterol 83 mg/dL (40-60); HEMOLYSIS < 15 (0-50); Potassium 4.5 mmol/L (3.4-5.1); Sodium 137 mmol/L (137-145); Total Protein 7.0 g/dL (6.3-8.2); Triglycerides 45 mg/dL (35-150)
== END ==
PROVIDERS: PCP Family Medicine; Referring Provider Family Medicine; Visit Provider Family Medicine
DX: Z12.5 Encounter for screening for malignant neoplasm of prostate (principal); Z51.81 Encounter for therapeutic drug level monitoring; E78.5 Hyperlipidemia, unspecified; Z79.01 Long term (current) use of anticoagulants
CPT/HCPCS: 36415; 80053; 80061; 85025; G0103